=== PATIENT | male | born 1960 | race Caucasian/White ===

== ENCOUNTER 2023-08-22 08:44 | Outpatient (OUT) | payer OTHER, SELFPAY ==
--- NOTE | 2023-08-22 08:54 | CT_ITS ---
[address] [address] Patient Name: BREN ANGEL MRN: [id number] date: 1960 Sex: M Assigned Patient Location: CT Current Patient Location: CT Accession/Order Number: [id number] Exam Date: 08/22/2023 09:02 Report Date: 08/22/2023 14:10 At the request of: ANTIONE ADAME Procedure: CT lung screening low-dose EXAM TYPE: CT lung screening low-dose INDICATION: Lung cancer screening. Current smoker. COMPARISON: Radiograph of the chest 10/12/2022 TECHNIQUE: Noncontrast, Low dose, helical axial images of the chest were obtained, and thin section, axial MIP, and coronal and sagittal reformats were also submitted from the acquisition scanner under radiologist supervision. Each series was submitted in a lung algorithm. Dose reduction techniques were achieved by using automated exposure control and/or adjustment of mA and/or kV according to patient size and/or use of iterative reconstruction technique. FINDINGS: Please note that this examination was tailored for evaluation of pulmonary nodules, and therefore soft tissue detail is suboptimal. Heart size within normal limits. No pericardial effusion. Coronary artery calcification and calcified atherosclerotic change within a normal caliber aorta. No mediastinal, hilar or axillary lymphadenopathy. No central endobronchial nodule.Mild diffuse emphysematous change and bronchial wall thickening. No focal consolidation or pleural effusion. No pneumothorax. 2 mm right upper lobe nodule (3, 49) 3 mm right middle lobe nodule (3, 100) 3 mm groundglass juxtapleural nodule (3, 60) 2 mm left upper lobe nodule (3, 45) Additional 1 to 2 mm pulmonary nodules bilaterally. No acute findings in the upper abdomen. No acute fracture or dislocation. IMPRESSION : Lung RADS category 2: Benign. RECOMMENDATIONS: Continued annual LD screening CT scan of the chest. Electronically authenticated by: PIPER ABDALLA Date: 08/22/2023 14:10
== END 2023-08-22 08:45 | disposition home or self-care (01) ==
LOC: CT 08:44
DX: Z12.2 Encounter for screening for malignant neoplasm of respiratory organs (principal)
CPT/HCPCS: 71271

== ENCOUNTER 2024-09-30 09:35 | Outpatient (OUT) | payer OTHER, SELFPAY ==
--- OUTSIDE RECORDS SUMMARY | 2024-09-30 09:52 | XMS_ITS | CCD ---
Author Organization [facility] Care Team Providers Care Rd Project Manager Name Role Phone DILLAN MCARTHUR Primary Care Unavailable DILLAN MCARTHUR Referring Unavailable [place], EHAB A Admitting Unavailable [place], EHAB A Attending Unavailable [place], EHAB A Surgeon Unavailable [place] Procedure Practitioner Unavailab DR DILLAN Atreaga Primary Care Unavailable JESUS MORA Admitting Unavailable JESUS MORA Consulting Unavailable JESUS MORA Attending Unavailable SY BANKS Consulting Unavailable DR SARTHAK COLEY Primary Care Unavailable MILES GUZMÁN Admitting Unavailable MILES GUZMÁN Attending Unavailable [place], LYLEAB Attending Unavailable MARTINA MATTHEWS Attending Unavailable MARTINA MATTHEWS Attending Unavailable Problems Active Problems Problem Classification Problem Date Documented Date Episodic/Chronic Coronary atherosclerosis and other heart disease (3 sources) Atherosclerotic heart disease of [place] coronary artery without angina pectoris; Translations: [ASHD [facility] CA W/O ANGINA PECTORIS] Onset: 10-13-2022 Chronic Coronary atherosclerosis and other heart disease (1 source) Presence of coronary angioplasty implant and graft; Translations: [PRESENCE COR ANGPLSTY IMPLANT AND GRAFT] Onset: 10-13-2022 Episodic Disorders of lipid metabolism (2 sources) Mixed hyperlipidemia; Translations: [Mixed hyperlipidemia] Onset: 02-01-2023 Chronic Essential hypertension (2 sources) Essential (primary) hypertension; Translations: [Essential (primary) hypertension] Onset: 02-01-2023 Chronic Other aftercare (1 source) custodial (current) use of aspirin; Translations: [CLINICAL PSYCHOLOGY PROFESSOR CURRENT USE OF ASPIRIN] Onset: 10-13-2022 Episodic Other aftercare (1 source) Other detention (current) drug therapy; Translations: [OTH CLINICAL PSYCHOLOGY PROFESSOR CURRENT DRUG THERAPY] Onset: 10-13-2022 Episodic Substance-related disorders (2 sources) Nicotine dependence, unspecified, uncomplicated; Translations: [Nicotine dependence, unspecified, uncomplicated] Onset: 02-01-2023 Chronic Past or Other Problems Problem Classification Problem Date Documented Da te Episodic/Chronic Nonspecific chest pain (6 sources) Chest pain, unspecified; Translations: [CHEST PAIN UNSPECIFIED] Onset: 10-12-2022 Episodic Results Test Name Value Interpretation Reference Range Facility Office Visiton 10-09-2023 Follow-up visit [id number] Nicanor Scott 1960 M Date Provider Department Center 10/09/2023 Lj-NATALIA DA SILVA Family History Problem Relation Age of Onset Hypertension Mother Coronary artery disease Paternal Grandfather Family Status - Relation Status Age at Mother Paternal Grandfather Level of Service:70570 [place] OFFICE/OUTPATIENT ESTABLISHED LOW MDM 20 MIN Normal [facility] Office Visiton 02-01-2023 Follow-up visit [id number] Hall 1960 M Date Provider Department Center 02/01/2023 [id number] STONE Family History Problem Relation Age of Onset Hypertension Mother Coronary artery disease Paternal Grandfather Family Status - Relation Status Age at Mother Paternal Grandfather Level of Service:58913 AR OFFICE/OUTPATIENT ESTABLISHED MOD MDM 30-39 MIN Reason for Visit and Comments: Follow-up [103796] - 4-6 week follow up [facility] 36on 01-03-2023 36 Patient called to make us aware that isosorbide gave him a horrible headache and he stopped it after 3 days. I advised him to take Tylenol with it for another 3 days and let us know if the headache continues. He verbalized understanding and will let us know. Normal [facility] Office Visiton 12-27-2022 Follow-up visit [id number] Nicanor Scott 1960 M Date Provider Department Center 12/27/2022 MARTINA BUCKLEY Family History Problem Relation Age of Onset Hypertension Mother Coronary artery disease Paternal Grandfather Family Status - Relation Status Age at Mother Paternal Grandfather Level of Service:81700 AR OFFICE/OUTPATIENT ESTABLISHED MOD MDM 30-39 MIN Reason for Visit and Comments: Coronary Artery Disease [187] Chest Pain [071060] Normal [facility] CBC AUTO DIFFon 10-12-2022 BASO # 0.1 103/ul Normal 0.0-0.1 [facility] Comment on above: Performed By: #### C BC #### [facility] [address] [place] [address] Dr. Jj Rodriguez Basophils/100 WBC (Bld) 0.6 % Normal 0.2-2.0 [facility] Comment on above: Performed By: #### C BC #### [facility] [address] [place] [address] Dr. Jj Rodriguez EO # 0.3 103/ul Normal 0.0-0.7 [facility] Comment on above: Performed By: #### C BC #### [facility] [address] [place] [address] Dr. Jj Rodriguez Eosinophils/100 WBC (Bld) 3.1 % Normal 0.9-7.0 [facility] Comment on above: Performed By: #### C BC #### [facility] [address] [place] [address] Dr. Jj Rodriguez Erythrocyte distribution width (RBC) [Ratio] 12.2 % Normal 11.0-15.0 [facility] Comment on above: Performed By: #### C BC #### [facility] [address] [place] [address] Dr. Jj Rodriguez Hematocrit (Bld) [Volume fraction] 48.5 % Normal 42.0-54.0 [facility] Comment on above: Performed By: #### C BC #### [facility] [address] [place] [address] Dr. Jj Rodriguez Hemoglobin (Bld) [Mass/Vol] 15.8 g/dL Normal 14.0-18.0 [facility] Comment on above: Performed By: #### C BC #### [facility] [address] [place] [address] Dr. Jj Rodriguez IG # 0.03 10e3/ul Normal 0.00-0.03 [facility] Comment on above: Performed By: #### C BC #### [facility] [address] [place] [address] Dr. Jj Rodriguez IG % 0.4 % Normal 0.0-0.5 [facility] Comment on above: Performed By: #### C BC #### [facility] [address] [place] [address] Dr. Jj Rodriguez LYMPH # 3.1 103/ul Normal 1.2-3.8 [facility] Comment on above: Performed By: #### C BC #### [facility] [address] [place] [address] Dr. Jj Rodriguez Lymphocytes/100 WBC (Bld) 38.4 % Normal 20.5-60.0 [facility] Comment on above: Performed By: #### C BC #### [facility] [address] [place] [address] Dr. jJ Rodriguez MANUAL DIFF REQ NO Normal [facility] Comment on above: Performed By: #### C BC #### [facility] [address] [place] [address] Dr. Jj Rodriguez MCH (RBC) [Entitic mass] 30.5 pg Normal 25.9-34.0 [facility] Comment on above: Performed By: #### C BC #### [facility] [address] [place] [address] Dr. Jj Rodriguez MCHC (RBC) [Mass/Vol] 32.6 g/dL Normal 29.9-35.2 [facility] Comment on above: Performed By: #### C BC #### [facility] [address] [place] [address] Dr. Jj Rodriguez MCV (RBC) [Entitic vol] 93.6 fL Normal 80.0-94.0 [facility] Comment on above: Performed By: #### C BC #### [facility] [address] [place] [address] Dr. Jj Rodriguez MONO # 0.7 103/ul Normal 0.3-0.8 [facility] Comment on above: Performed By: #### C BC #### [facility] [address] [place] [address] Dr. Jj Rodriguez Monocytes/100 WBC (Bld) 8.8 % Normal 1.7-12.0 [facility] Comment on above: Performed By: #### C BC #### [facility] [address] [place] [address] Dr. jJ Rodriguez NEUT # 4.0 103/ul Normal 1.4-6.5 [facility] Comment on above: Performed By: #### C BC #### [facility] [address] [place] [address] Dr. Jj Rodriguez Neutrophils/100 WBC (Bld) 48.7 % Normal 43.0-75.0 [facility] Comment on above: Performed By: #### C BC #### [facility] [address] [place] [address] Dr. Jj Rodriguez Platelet mean volume (Bld) [Entitic vol] 10.7 fL Normal 9.5-13.5 [facility] Comment on above: Performed By: #### C BC #### [facility] [address] [place] [address] Dr. Jj Rodriguez PLT 303 103/ul Normal 150-450 [facility] Comment on above: Performed By: #### C BC #### [facility] [address] [place] [address] Dr. Jj Rodriguez RBC 5.18 106/ul Normal 4.70-6.10 [facility] Comment on above: Performed By: #### C BC #### [facility] [address] [place] [address] Dr. Jj Rodriguez WBC 8.2 103/ul Normal 4.0-11.0 [facility] Comment on above: Performed By: #### C BC #### [facility] [address] [place] [address] Dr. Jj Rodriguez PROF CHEM 8 (BAS METB)on Anion gap [Moles/Vol] 11.7 mmol/L Normal [facility] Comment on above: Performed By: #### H STROPN, BMP #### [facility] [address] [place] [address] Dr. Jj Rodriguez Calcium [Mass/Vol] 8.8 mg/dL Normal 8.5-10.1 [facility] Comment on above: Performed By: #### H STROPN, BMP #### [facility] [address] [address] [address] Jj Rodriguez Chloride [Moles/Vol] 104 mmol/L Normal 98-107 [facility] Comment on above: Performed By: #### H STROPN, BMP #### [facility] [address] [address] [address] Jj Rodriguez CO2 [Moles/Vol] 31.4 mmol/L Normal 21.0-32.0 [facility] Comment on above: Performed By: #### H STROPN, BMP #### [facility] [address] [place] [address] Dr. Jj Rodriguez Creatinine [Mass/Vol] 0.82 mg/dL Normal 0.70-1.30 [facility] Comment on above: Performed By: #### H STROPN, BMP #### [facility] [address] [place] [address] Dr. Jj Rodriguez EGFR-AF MALIAN >60 Normal >=60 [facility] Comment on above: Performed By: #### H STROPN, BMP #### [facility] [address] [place] [address] Dr. Jj Rodriguez EGFR-NON AF MALIAN >60 Normal >=60 [facility] Comment on above: Performed By: #### H STROPN, BMP #### [facility] [address] [address] [address] Jj Rodriguez Glucose [Mass/Vol] 123 mg/dL Critically high 74-106 [facility] Comment on above: Performed By: #### H STROPN, BMP #### [facility] [address] [place] [address] Dr. Jj Rodriguez Potassium [Moles/Vol] 4.1 mmol/L Normal 3.5-5.1 [facility] Comment on above: Performed By: #### H STROPN, BMP #### [facility] [address] [place] [address] Dr. Jj Rodriguez Sodium [Moles/Vol] 143 mmol/L Normal 136-145 [facility] Comment on above: Performed By: #### H WIN, BMP #### [facility] [address] [place] [address] Dr. Jj Rodriguez Urea nitrogen [Mass/Vol] 13.0 mg/dL Normal 7.0-18.0 [facility] Comment on above: Performed By: #### H WIN, BMP #### [facility] [address] [place] [address] Dr. Jj Rodriguez Urea nitrogen/Creatinine [Mass ratio] 15.9 mg/mg Normal [facility] Comment on above: Performed By: #### H WIN, BMP #### [facility] [address] [place] [address] Dr. Jj Rodriguez TROPONIN, HIGH SENSITIVITYon 10-12-2022 HSTROP 5.9 pg/mL Normal 4.0-76.1 [facility] Comment on above: Result Comment: CUT- OFF POINTS HAVE BEEN ESTABLISHED BASED ON THE FOURTH UNIVERSAL DEFINITIONS OF MYOCARDIAL INFARCTION. THE UPPER REFERENCE LIMIT (URL) OF TROPONIN, DEFINED THE 99TH PERCENTILE OF cTnI DISTRIBUTION IN A REFERENCE POPULATION, HAS BEEN CONFIRMED THE DECISION THRESHOLD FOR PA DIAGNOSIS. Performed By: #### Fannie WALDEN #### [facility] [address] [place] [address] Dr. Jj Rodriguez HSTROP 6.2 pg/mL Normal 4.0-76.1 [facility] Comment on above: Result Comment: CUT- OFF POINTS HAVE BEEN ESTABLISHED BASED ON THE FOURTH UNIVERSAL DEFINITIONS OF MYOCARDIAL INFARCTION. THE UPPER REFERENCE LIMIT (URL) OF TROPONIN, DEFINED THE 99TH PERCENTILE OF cTnI DISTRIBUTION IN A REFERENCE POPULATION, HAS BEEN CONFIRMED THE DECISION THRESHOLD FOR PA DIAGNOSIS. Performed By: #### H WIN, BMP #### [facility] [address] [place] [address] Dr. Jj Rodriguez XR CHEST 1 Von 10-12-2022 XR CHEST 1 V EXAM: CHEST PAIN, UNSPECIFIED. EXAMINATION: Portable chest: 10/12/2022 at 0959 hours. COMPARISON: AP chest 11/17/2020. FINDINGS: Patient is slightly rotated, lordotic. The visualized osseous structures are normal. The heart size seems normal. The aorta has normal contour. Trachea is midline. There are no focal infiltrates, pleural effusions, pleural edema or pneumothorax. IMPRESSION: No acute cardiopulmonary disease. Electronically authenticated by: SY BANKS Date: 2022-10-12 10:37 Normal [facility] CREATININE BLOODon Creatinine [Mass/Vol] 0.90 mg/dL Normal 0.70-1.30 [facility] Comment on above: Order Comment: No: D o not add to previous draw Performed By: #### 2 5656 #### [facility] [address] [address], [facility] GFR/1.73 sq M.predicted among blacks MDRD (S/P/Bld) [Vol rate/Area] mL/min/{1.73_m2} Normal >60 [facility] Comment on above: Order Comment: No: D o not add to previous draw Performed By: #### 2 5656 #### [facility] [address] [address], [facility] GFR/1.73 sq M.predicted among non-blacks MDRD (S/P/Bld) [Vol rate/Area] mL/min/{1.73_m2} Normal >60 [facility] Comment on above: Order Comment: No: D o not add to previous draw Performed By: #### 2 5656 #### [facility] [address] [facility] [place] [address], [facility] Cardiovascular Lab Reporton 12-02-2020 Cardiovascular Lab Report [facility] Patient Name: Nicanor Scott [facility] Lisa MR #: [id number] Department of Physician: Navin Desai M.D. Division of Service Date: 12/01/2020 Cardiology Birthdate: 1960 Adult Cardiovascular Room #: 3AB [id number] Services [facility] [address] [address] Cardiovascular Laboratory Report FINAL IMPRESSIONS: 1. Severe stenoses of the right coronary artery, successfully treated by balloon angioplasty and Synergy drug-eluting stent placement. 2. 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 3. 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 4. Normal global left ventricular systolic function. RECOMMENDATIONS: 1. Aspirin 81 mg lifelong. 2. Plavix 75 mg daily for a minimum of 6 months preferably long-term. 3. Aggressive cardiovascular risk factor modification. 4. Optimization of medical management. 5. Follow up with Dr. Da Silva in the next 2 to 4 weeks. 6. Follow up with his family physician as scheduled. PROCEDURES: Bilateral selective coronary angiography via right radial approach, ultrasound-guided access to the right common femoral artery, dual coronary injections, percutaneous balloon angioplasty and Synergy drug-eluting stent placement in the right coronary artery, balloon angioplasty and Synergy drug-eluting stent placement in the left circumflex and adjacent to the 3rd obtuse marginal branch. METHOD: After risks, benefits, and alternatives were explained, written informed consent was obtained. The patient was prepped and draped in the usual sterile fashion over the right wrist and right groin. Using 1% lidocaine solution, local infiltration anesthesia was achieved. Using a modified Seldinger technique and a micropuncture kit, access of the right radial artery was obtained. A 6-Cypriot glide sheath was inserted without difficulty. Bilateral selective coronary angiography was performed using JR5 and a JL3.5 catheters. After reviewing the images, it was elected to proceed with Dual coronary injections. Local infiltration anesthesia was achieved over the right groin. Under ultrasound guidance, a micropuncture kit was used to access the right common femoral artery using a single front wall puncture technique. Angiography via the inner cannula of the micropuncture kit was performed. This was upsized to a 6-Cypriot 11 cm sheath. A 6-Cypriot XB3.5 guide catheter was advanced over a J-wire and coaxially engaged into the left main ostium. A 6-Cypriot JR4 guide catheter was advanced through the radial access site and coaxially engaged into the right coronary ostium. A 0.014 Runthrough NS wire was advanced through the catheter across the suspect stenosis in the right coronary artery and positioned distally. Balloon angioplasty was performed sequentially across both the mid and proximal lesion using a 2.5 x 15 balloon and a 3.0 x 15 mm noncompliant balloon in the mid and proximal portions. Inadequate result was treated using a 3.5 x 16 synergy drug-eluting stents in both the distal and proximal of the two lesions. Repeat imaging showed an optimal result. The wire was removed. Dual coronary injections were then performed using the JR4 guide and the XB3.5 guide catheter. This revealed a short segment chronic subtotal occlusion of the left circumflex. This was crossed using the run-through NS wire. Balloon dilation was performed using a 2.0 x 20 mm noncompliant balloon. An inadequate result was treated using overlapping 2.75 x 32, 2.5 x 8, and 2.5 x 16 from proximal to distal with attention paid to ensure overlap of stent margins. Repeat imaging showed an optimal result. The wire was removed. Final images in orthogonal views showed HANNA-3 flow with no dissection, thrombus, or distal wire trauma. At this point, it was elected to conclude the procedure. Overall, the patient tolerated the procedure well. There were no overt complications. After removal of the guide catheters, a 6-Cypriot MynxGrip closure device was deployed over the femoral access site receiving optimal hemostasis. The TR band was used for hemostasis over the radial access site. He was to be transferred to the holding area in stable condition. FINDINGS: Hemodynamics. AO 111/61. Left Ventriculography: This was not performed. Ejection fraction is normal by noninvasive imaging. CORONARY ARTERIES: Left main coronary artery. This arises from the left coronary cusp. It bifurcates into the left anterior descending and left circumflex coronary arteries. It is free of significant stenosis. Left anterior descending coronary artery. This shows mild plaque proximally. There is a short segment myocardial bridge w (more content not included)... Normal [facility] HEMOGLOBIN A1Con 12-02-2020 Glucose [Moles/Vol] 108 mmol/L Normal [facility] Comment on above: Order Comment: No: D o not add to previous draw Performed By: #### 3 2695 #### [facility] [address] [place] [address], [facility] HbA1c (Bld) [Mass fraction] 5.4 % Normal 4.0-6.0 [facility] Comment on above: Order Comment: No: D o not add to previous draw Performed By: #### 3 1791 #### [facility] [address] [place] [address], [facility] LIPID PROFILEon 12-02-2020 Cholesterol [Mass/Vol] 160 mg/dL Normal 120-200 [facility] Comment on above: Order Comment: No: D o not add to previous draw Result Comment: CHOL ESTEROL REFERENCE RANGE: 20 YEARS AND OLDER CARDIOVASCULAR RISK Less than 200 mg/dl Low Risk 200 to 239 mg/dl Borderline Risk 240 mg/dl and greater High Risk Performed By: #### 4 [id number] #### [facility] [address] [place] [address], [facility] Cholesterol in HDL [Mass/Vol] 21 mg/dL Low 23-92 [facility] Comment on above: Order Comment: No: D o not add to previous draw Result Comment: Slig ht variation in normal range could be due to gender and/or age. HDL CHOLESTEROL REFERENCE RANGE: 20 years and older Cardiovascular Risk > or =60 mg/dL Desirable 40 TO 59 mg/dL Low Risk <40 mg/dL High Risk Performed By: #### 4 [id number] #### [facility] [address] [place] [address], [facility] Cholesterol in LDL [Mass/Vol] 112 mg/dL Normal 0-130 [facility] Comment on above: Order Comment: No: D o not add to previous draw Result Comment: LDL IS A CALCULATION LDL IS ONLY VALID IF THE TRIG IS LESS THAN 400. Performed By: #### 4 [id number] #### [facility] [address] [place] [address], [facility] Cholesterol.total/Ch olesterol in HDL [Mass ratio] 7.6 {ratio} High 0.0-4.5 [facility] Comment on above: Order Comment: No: D o not add to previous draw Performed By: #### 4 [id number] #### [facility] [address] [place] [address], [place] NON-HDL CHOLESTEROL 139 mg/dL Normal [facility] Comment on above: Order Comment: No: D o not add to previous draw Performed By: #### 4 [id number] #### [facility] [address] Triglyceride [Mass/Vol] 137 mg/dL Normal 40-149 [facility] Comment on above: Order Comment: No: D o not add to previous draw Result Comment: TRIG LYCERIDE REFERENCE RANGE: 20 YEARS AND OLDER CARDIOVASCULAR RISK LESS THAN 150 mg/dl LOW RISK 150 TO 199 mg/dl BORDERLINE RISK 200 mg/dl AND GREATER HIGH RISK Performed By: #### 4 [id number] #### [facility] [address] VLDL CHOL 27 mg/dL Normal 0-40 [facility] Comment on above: Order Comment: No: D o not add to previous draw Performed By: #### 4 [id number] #### [facility] [address] Encounters Encounter Date Encounter Type Care Provider Facility Start: 10-09-2023 End: 10-09-2023 ambulatory AB [facility] Start: 02-01-2023 End: [facility] Start: 12-27-2022 End: 12-27-2022 ambulatory [facility] Start: 10-12-2022 End: 10-12-[address] DILLAN MCARTHUR Facility:[facility] Start: 05-12-[address] DOCTOR COLEY Facility :[facility] Start: 12-01-2020 End: 12-02-2020 ambulatory DILLAN MCARTHUR Facility:[facility] Procedures Date Procedure Procedure Detail Performing Clinician Start: 12-02-2020 ANES THER INTERVEN RAD LOGAN MCARTHUR Start: 12-02-2020 PRQ CARD REVASC CHRONIC 1VSL EHAB A [place] Start: 12-02-2020 PRQ CARD STENT W/ANGIO 1 [facility] [place] Payers Date Payer Category Payer Unknown [id number] 2020 Unknown [id number] 50 1960 Unknown [id number] 1960 Unknown [id number] 1960 Unknown [id number] 1959 Unknown [id number] Progress note 10-09-2023 Note Date & Type Note Facility 10-09-2023 Note [facility] Cardiology Clinic Note Chief Complaint: Patient here for 6 mo follow up CAD, hyperlipidemia, and hypertension. HPI: Nicanor Scott is a 63 y.o. male patient with coronary artery disease status post circumflex stents x3 and RCA stent 12/01/2020, hyperlipidemia, and tobacco use. Doing well; no new symptoms Cardiology ROS: Review of Systems Cardiovascular: Positive for palpitations ( stress related ). Musculoskeletal: Positive for back pain. Neurological: Positive for headaches. All other systems reviewed and are negative. Past Medical History He has a past medical history of Coronary artery disease, Hyperlipidemia, Hypertension, and Palpitations. Surgical History He has a past surgical history that includes Cardiac catheterization; Coronary stent placement; Appendectomy; and Hernia repair. Social History He reports that he has been smoking cigarettes. He has been smoking an average of .5 packs per day. He has never used smokeless tobacco. He reports that he does not currently use alcohol. No history on file for drug use. Family History Family History Problem Relation Name Age of Onset Hypertension Mother Coronary artery disease Paternal Grandfather Allergies Patient has no known allergies. Medications Current Outpatient Medications: aspirin 81 mg EC tablet, aspirin 81 mg tablet,delayed release TAKE 1 TABLET BY MOUTH EVERY DAY, Disp: , Rfl: atorvastatin (Lipitor) 80 mg tablet, atorvastatin 80 mg tablet TAKE 1 TABLET BY MOUTH EVERY DAY, Disp: , Rfl: cholecalciferol, vitamin D3, 10 mcg (400 unit) capsule, Take by mouth., Disp: , Rfl: clopidogrel (Plavix) 75 mg tablet, clopidogrel 75 mg tablet TAKE 1 TABLET BY MOUTH EVERY DAY, Disp: , Rfl: isosorbide mononitrate ER (Imdur) 30 mg 24 hr tablet, Take 1 tablet (30 mg) by mouth in the morning. Do not crush or chew., Disp: 30 tablet, Rfl: 1 metoprolol tartrate (Lopressor) 50 mg tablet, every 12 (twelve) hours., Disp: , Rfl: nitroglycerin (Nitrostat) 0.4 mg SL tablet, nitroglycerin 0.4 mg sublingual tablet DISSOLVE 1 TAB UNDER TONGUE EVERY 5 MINUTES UP TO 3 TIMES NEEDED FOR CHEST PAIN, Disp: , Rfl: Last Recorded Vitals BP 134/72 (BP Location: Left arm, Patient Position: Sitting) Pulse 71 Ht 1.778 m (5' 10 ) Wt 92.1 kg (203 lb) SpO2 96% BMI 29.13 kg/m??? Physical Examination: GENERAL: alert and oriented x3, well developed, in no acute distress. HEAD: atraumatic, normocephalic. EYES: [place], EOMI. NECK: trachea midline, no JVD present, no carotid bruits present. CARDIAC: S1, S2 present. RRR. No murmur, rubs, or gallops. RESPIRATORY: CTAB, no increased effort of breathing, no rales, rhonchi, or wheezing. ABDOMEN: soft, nontender, nondistended. EXTREMITIES: no lower extremity edema, peripheral pulses are 2+ bilaterally. No rash/skin discoloration present. NEURO: strength/sensation equal and symmetric in bilateral upper and lower extremities. PSYCH: appropriate mood, affect, and judgement. Recent Labs 10/12/2022 Sodium 143, potassium 4.1, chloride 104, CO2 31.4, glucose 123, BUN 13, creatinine 0.82, GFR greater than 60% WBC 8.2, hematocrit 48.5, hemoglobin 15.8, platelets 303 Imaging and other tests Cardiovascular Laboratory Report (12/01/20) FINAL IMPRESSIONS: 1. Severe stenoses of the right coronary artery, successfully treated by balloon angioplasty and Synergy drug-eluting stent placement. 2. 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 3. 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 4. Normal global left ventricular systolic function. RECOMMENDATIONS: 1. Aspirin 81 mg lifelong. 2. Plavix 75 mg daily for a minimum of 6 months preferably long-term. 3. Aggressive cardiovascular risk factor modification. 4. Optimization of medical management. 5. Follow up with Dr. Da Silva in the next 2 to 4 weeks. 6. Follow up with his family physician as scheduled. 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 [facility] Progress note 02-01-2023 Note Date & Type Note Facility 02-01-2023 Note Patient is here toda y for a 4-6 week follow up Review of Systems Musculoskeletal: Positive for back pain. Neurological: Positive for headaches. All other systems reviewed and are negative. [facility] Progress note 02-01-2023 Note Date & Type Note Facility 02-01-2023 Note Cardiology Clinic No te Subjective Nicanor Scott is a 62 y.o. year old male patient with coronary artery disease status post circumflex stents x3 and RCA stent 12/01/2020, lipidemia, and tobacco use, seen in follow-up for chest pain. During last visit, we started him on Imdur 30 mg daily. He developed headaches with these, however he reports these are improving. His chest pain has resolved. Overall doing well. He is still smoking and is not interested in quitting at this time. Patient Active Problem List Diagnosis Coronary atherosclerosis Generalized anxiety disorder Major depressive disorder, recurrent episode, moderate (CMS/HCC) Smoker Family History Problem Relation Name Age of Onset Hypertension Mother Coronary artery disease Paternal Grandfather Social History Tobacco Use Smoking status: Every Day Packs/day: 0.50 Types: Cigarettes Smokeless tobacco: Never Substance Use Topics Alcohol use: Not Currently HPI Nicanor Scott is a 62 y.o. year old male patient with coronary artery disease status post circumflex stents x3 and RCA stent 12/01/2020, hyperlipidemia, and tobacco use. Update: 12/27/2022 He is seen in posthospital follow-up. He presented to the [facility] on 10/12/2022 for evaluation of chest pain ongoing for several weeks. His work-up including ECG and high sensitive troponins were negative. He was treated with sublingual nitroglycerin with resolution of chest pain. He has constant midsternal chest pressure which he rates 2/10, pain is constant lasting for about 2-3 hours at a time and recurring about every other day. Pain is dissimilar to pain leading to ED presentation. He experiences very brief palpitations about twice/week lasting about 5 seconds. He continues to smoke, he is down to a little about a pack a day from 2 packs/day. Review of Systems Cardiovascular: Positive for chest pain and palpitations. Negative for claudication, dyspnea on exertion, irregular heartbeat, leg swelling, near-syncope, orthopnea, paroxysmal nocturnal dyspnea and syncope. Neurological: Negative for dizziness and light-headedness. Objective Visit Vitals BP 139/76 (BP Location: Left arm, Patient Position: Sitting, BP Cuff Size: Adult) Pulse 75 Ht 1.778 m (5' 10 ) Wt 94.5 kg (208 lb 6.4 oz) SpO2 97% BMI 29.90 kg/m??? Smoking Status Every Day BSA 2.16 m??? Physical Exam General: Awake, alert, good spirits. NADit Pulm: Breath sounds clear to ascultation bilaterally with no wheeze, crackles or rhonchi Cards: Regular rate and rhythm, S1, S2. No S3 or S4 gallop. Murmur: none Abd: Soft, Nontender, physiologic bowel sounds are present Extr: Lower extremity edema: None. Skin: warm, dry, well perfused Neuro: A&Ox3, No gross deficits Allergies No Known Allergies Medications Current Outpatient Medications: aspirin 81 mg EC tablet, aspirin 81 mg tablet,delayed release TAKE 1 TABLET BY MOUTH EVERY DAY, Disp: , Rfl: atorvastatin (Lipitor) 80 mg tablet, atorvastatin 80 mg tablet TAKE 1 TABLET BY MOUTH EVERY DAY, Disp: , Rfl: cholecalciferol, vitamin D3, 10 mcg (400 unit) capsule, Take by mouth., Disp: , Rfl: clopidogrel (Plavix) 75 mg tablet, clopidogrel 75 mg tablet TAKE 1 TABLET BY MOUTH EVERY DAY, Disp: , Rfl: metoprolol tartrate (Lopressor) 50 mg tablet, every 12 (twelve) hours., Disp: , Rfl: nitroglycerin (Nitrostat) 0.4 mg SL tablet, nitroglycerin 0.4 mg sublingual tablet DISSOLVE 1 TAB UNDER TONGUE EVERY 5 MINUTES UP TO 3 TIMES NEEDED FOR CHEST PAIN, Disp: , Rfl: isosorbide mononitrate ER (Imdur) 30 mg 24 hr tablet, Take 1 tablet (30 mg) by mouth in the morning. Do not crush or chew., Disp: 30 tablet, Rfl: 1 Recent Labs 10/12/2022 Sodium 143, potassium 4.1, chloride 104, CO2 31.4, glucose 123, BUN 13, creatinine 0.82, GFR greater than 60% WBC 8.2, hematocrit 48.5, hemoglobin 15.8, platelets 303 Imaging and other tests Cardiovascular Laboratory Report (12/01/20) FINAL IMPRESSIONS: 1. Severe stenoses of the right coronary artery, successfully treated by balloon angioplasty and Synergy drug-eluting stent placement. 2. 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 3. 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 4. Normal global left ventricular systolic function. RECOMMENDATIONS: 1. Aspirin 81 mg lifelong. 2. Plavix 75 mg daily for a minimum of 6 months preferably long-term. 3. Aggressive cardiovascular risk factor modification. 4. Optimization of medical management. 5. Follow up with Dr. Da Silva in the next 2 to 4 weeks. 6. Follow up with his family physician as scheduled. ECHO 11/25/20: EF >55%, no DD, no valvular dysfunction, normal right sided pressures Assessment Diagnoses and all orders for this visit: Coronary art (more content not included)... [facility] Progress note 12-27-2022 Note Date & Type Note Facility 12-27-2022 Note Cardiology Clinic No te Subjective Nicanor Scott is a 62 y.o. year old male patient with coronary artery disease status post circumflex stents x3 and RCA stent 12/01/2020, lipidemia, and tobacco use, seen in posthospital follow-up. He presented to the [facility] on 10/12/2022 for evaluation of chest pain ongoing for several weeks. His work-up including ECG and high sensitive troponins were negative. He was treated with sublingual nitroglycerin with resolution of chest pain. He has constant midsternal chest pressure which he rates 2/10, pain is constant lasting for about 2-3 hours at a time and recurring about every other day. Pain is dissimilar to pain leading to ED presentation. He experiences very brief palpitations about twice/week lasting about 5 seconds. He continues to smoke, he is down to a little about a pack a day from 2 packs/day. Patient Active Problem List Diagnosis Coronary atherosclerosis Generalized anxiety disorder Major depressive disorder, recurrent episode, moderate (CMS/HCC) Smoker Family History Problem Relation Name Age of Onset Hypertension Mother Coronary artery disease Paternal Grandfather Social History Tobacco Use Smoking status: Every Day Packs/day: 0.50 Types: Cigarettes Smokeless tobacco: Never Substance Use Topics Alcohol use: Not Currently Review of Systems Cardiovascular: Positive for chest pain and palpitations. Negative for claudication, dyspnea on exertion, irregular heartbeat, leg swelling, near-syncope, orthopnea, paroxysmal nocturnal dyspnea and syncope. Neurological: Negative for dizziness and light-headedness. Objective Visit Vitals BP 115/62 (BP Location: Left arm, Patient Position: Sitting) Pulse 61 Ht 1.778 m (5' 10 ) Wt 94.8 kg (209 lb) SpO2 96% BMI 29.99 kg/m??? Smoking Status Every Day BSA 2.16 m??? Physical Exam General: Awake, alert, good spirits. NADit Pulm: Breath sounds clear to ascultation bilaterally with no wheeze, crackles or rhonchi Cards: Regular rate and rhythm, S1, S2. No S3 or S4 gallop. Murmur: none Abd: Soft, Nontender, physiologic bowel sounds are present Extr: Lower extremity edema: None. Skin: warm, dry, well perfused Neuro: A&Ox3, No gross deficits Allergies No Known Allergies Medications Current Outpatient Medications: aspirin 81 mg EC tablet, aspirin 81 mg tablet,delayed release TAKE 1 TABLET BY MOUTH EVERY DAY, Disp: , Rfl: atorvastatin (Lipitor) 80 mg tablet, atorvastatin 80 mg tablet TAKE 1 TABLET BY MOUTH EVERY DAY, Disp: , Rfl: cholecalciferol, vitamin D3, (Vitamin D3) 10 mcg (400 unit) capsule, Take by mouth., Disp: , Rfl: clopidogrel (Plavix) 75 mg tablet, clopidogrel 75 mg tablet TAKE 1 TABLET BY MOUTH EVERY DAY, Disp: , Rfl: metoprolol tartrate (Lopressor) 50 mg tablet, every 12 (twelve) hours., Disp: , Rfl: nitroglycerin (Nitrostat) 0.4 mg SL tablet, nitroglycerin 0.4 mg sublingual tablet DISSOLVE 1 TAB UNDER TONGUE EVERY 5 MINUTES UP TO 3 TIMES NEEDED FOR CHEST PAIN, Disp: , Rfl: isosorbide mononitrate ER (Imdur) 30 mg 24 hr tablet, Take 1 tablet (30 mg) by mouth in the morning. Do not crush or chew., Disp: 30 tablet, Rfl: 1 Recent Labs 10/12/2022 Sodium 143, potassium 4.1, chloride 104, CO2 31.4, glucose 123, BUN 13, creatinine 0.82, GFR greater than 60% WBC 8.2, hematocrit 48.5, hemoglobin 15.8, platelets 303 Imaging and other tests Cardiovascular Laboratory Report (12/01/20) FINAL IMPRESSIONS: 1. Severe stenoses of the right coronary artery, successfully treated by balloon angioplasty and Synergy drug-eluting stent placement. 2. 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 3. 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 4. Normal global left ventricular systolic function. RECOMMENDATIONS: 1. Aspirin 81 mg lifelong. 2. Plavix 75 mg daily for a minimum of 6 months preferably long-term. 3. Aggressive cardiovascular risk factor modification. 4. Optimization of medical management. 5. Follow up with Dr. Da Silva in the next 2 to 4 weeks. 6. Follow up with his family physician as scheduled. ECHO 11/25/20: EF >55%, no DD, no valvular dysfunction, normal right sided pressures Assessment Diagnoses and all orders for this visit: Coronary artery disease involving [place] coronary artery of [place] heart, unspecified whether angina present - isosorbide mononitrate ER (Imdur) 30 mg 24 hr tablet; Take 1 tablet (30 mg) by mouth in the morning. Do not crush or chew. Chest pain, unspecified type - ECG 12 lead Mixed hyperlipidemia Tobacco dependence Plan Coronary artery disease -Symptoms are atypical occurring mainly at rest, however did seem to improve with nitroglycerin provided in the emergency department. He is agreeable to start (more content not included)... [facility] Summary Purpose Family History No Family History Records FoundNo Family History Records FoundNo Family History Records Found Advance Directives No Advanced Directives Records FoundNo Advanced Directives Records FoundNo Advanced Directives Records Found Additional Source Comments (unrecognized sect ion and content) No Status Records FoundNo Status Records FoundNo Status Records Found INFORMATION SOURCE (unrecogn ized section and content) DATE CREATED AUTHOR 01/20/[address] [facility] DATE CREATED AUTHOR AUTHOR'S ORGANIZ ATION 10/17/2022 [facility] DATE CREATED AUTHOR AUTHOR'S ORGANIZ ATION 10/09/2023 [facility] FOR RECORDS PERTAINING TO PATIENTS WHO ARE OR HAVE BEEN ENROLLED IN A CHEMICAL DEPENDENCY/SUBSTANCEABUSE PROGRAM, SOME INFORMATION MAY BE OMITTED. This clinical summary was aggregated from multiple sources. Caution should be exercised in using it in the provision of clinical care. This summary normalizes information from multiple sources, and as a consequence, information in this document may materially change the coding, format and clinical context of patient data. In addition, data may be omitted in some cases. CLINICAL DECISIONS SHOULD BE BASED ON THE PRIMARY CLINICAL RECORDS. [employer] provides no warranty or guarantee of the accuracy or completeness of information in this document.
[2024-09-30 11:06] LABS: Alanine Aminotransferase 50 U/L (16-63); Albumin Globulin Ratio 1.3; Albumin Level 3.7 g/dL (3.4-5.0); Alkaline Phosphatase 87 U/L (46-116); Aspartate Amino Transferase 21 U/L (15-37); Bilirubin Direct 0.1 mg/dL (0.0-0.2); Bilirubin Total 0.5 mg/dL (0.2-1.0); Chol HDL Ratio 6.5; Cholesterol 216 mg/dL (<=200); Globulin 2.9 g/dL; HDL Cholesterol 33 mg/dL (40-60); Total Protein 6.6 g/dL (6.4-8.2); Triglycerides 198 mg/dL (<=150); VLDL CHOLESTEROL 39.6 mg/dL
== END 2024-09-30 09:36 | disposition home or self-care (01) ==
LOC: LAB 09:37
PROVIDERS: Visit Provider Internal Medicine Interventional Cardiology
DX: E78.5 Hyperlipidemia, unspecified (principal)
CPT/HCPCS: 36415; 80061; 80076

== ENCOUNTER 2024-10-18 08:17 | Outpatient (OUT) | payer OTHER, SELFPAY ==
--- NOTE | 2024-10-18 08:22 | CT_ITS ---
[address] [address] Patient Name: BREN ANGEL MRN: [id number] date: 1960 Sex: M Assigned Patient Location: CT Current Patient Location: CT Accession/Order Number: [id number] Exam Date: 10/18/2024 08:27 Report Date: 10/18/2024 09:23 At the request of: NON-STAFF PHYSICIAN Procedure: CT lung screening low-dose EXAM: CT lung screening low-dose HISTORY: Nicotine Dependence COMPARISON: CT lung screen low-dose dated 08/22/2023. TECHNIQUE: Routine CT low dose lung screen. Dose reduction techniques were achieved by using automated exposure control and/or adjustment of mA and/or kV according to patient size and/or use of iterative reconstruction technique. FINDINGS: Cardiovascular: Multivessel coronary calcifications. There may be coronary artery stents. Correlation should be made with the clinical history. The left vertebral artery originates off the aortic arch, a variant of normal. There is mild atheromatous calcification along the aortic arch and proximal abdominal aorta. Lung: There is centrilobular emphysema. There is mild peribronchial thickening consistent with acute and/or chronic bronchitis. There is mild biapical pleural parenchymal scarring. Nodules: Right: Stable 2.3 mm noncalcified right apical nodule (series 4 image 29). Stable 1.9 mm and 2.1 mm noncalcified right upper lobe nodules (series 4 image 53). Stable 2.5 mm noncalcified right lower lobe nodule (series 4 image 82). Left: Stable 2.1 mm noncalcified left upper lobe nodule (series 4 image 51). Stable 1.8 mm noncalcified left upper lobe nodule (series 4 image 58). Stable 2.6 mm noncalcified left upper lobe nodule (series 4 image 100). Lymphadenopathy: There are no pathologically enlarged lymph nodes. Other: The trachea, esophagus and thyroid gland are unremarkable. Upper abdomen: Unremarkable. Osseous: There is a bone island within each humeral head. There are small Schmorl's nodes at T9-10. CT/CT lung screening low-dose IMPRESSION: There is centrilobular emphysema and mild peribronchial thickening consistent with acute and/or chronic bronchitis. Stable noncalcified nodules ranging from 1.8 mm to 2.6 mm. There are no pathologically enlarged lymph nodes. Atherosclerotic disease as described. Lung rads score 2. A low-dose CT lung screen examination in 12 months is recommended. Electronically authenticated by: ARELI SAMUEL Date: 10/18/2024 09:23
--- OUTSIDE RECORDS SUMMARY | 2024-10-18 08:24 | XMS_ITS | CCD ---
Author Organization [facility] Care Team Providers Care Kiln Firer Name Role Phone DILLAN MCARTHUR Primary Care Unavailable DILLAN MCARTHUR Referring Unavailable [place], EHAB A Admitting Unavailable [place], EHAB A Attending Unavailable [place], EHAB A Surgeon Unavailable NE Procedure Practitioner Unavailab DR DILLAN Arteaga Primary Care Unavailable JESUS MORA Admitting Unavailable [...] disease (3 sources) Atherosclerotic heart disease of [place] coronary artery without angina pectoris; Translations: [ASHD [place] W/O ANGINA PECTORIS] Onset: 10-13-2022 Chronic [...] Onset: 02-01-2023 Chronic Other aftercare (1 source) long-term (current) use of aspirin; Translations: [JOGGER OPERATOR CURRENT USE OF ASPIRIN] Onset: 10-13-2022 Episodic Other aftercare (1 source) Other half-way (current) drug therapy; Translations: [OTH JOGGER OPERATOR CURRENT DRUG THERAPY] Onset: 10-13-2022 Episodic Substance-related disorders (2 sources) Nicotine dependence, unspecified, uncomplicated; Translations: [Nicotine dependence, unspecified, uncomplicated] Onset: 02-01-2023 Chronic Past or Other Problems Problem Classification Problem Date Documented Da te Episodic/Chronic Nonspecific chest pain (6 sources) Chest pain, unspecified; Translations: [CHEST PAIN UNSPECIFIED] Onset: 10-12-2022 Episodic Results Test Name Value Interpretation Reference Range Facility Office Visiton 10-09-2023 Follow-up visit [id number] Nicanor Scott 1960 M Date Provider Department Center 10/09/2023 Lj-NATALIA DA SILVA Family History Problem Relation Age of Onset Hypertension Mother Coronary artery disease Paternal Grandfather Family Status - Relation Status Age at Mother Paternal Grandfather Level of Service:50458 NE OFFICE/OUTPATIENT ESTABLISHED LOW MDM 20 MIN Normal [facility] Office Visiton 02-01-2023 Follow-up visit [id number] Hall 1960 M Date Provider Department Center 02/01/2023 53901-QZYNJODJCMARTINA STONE Family History Problem Relation Age of Onset Hypertension Mother Coronary artery disease Paternal Grandfather Family Status - Relation Status Age at Mother Paternal Grandfather Level of Service:34589 NE OFFICE/OUTPATIENT ESTABLISHED MOD MDM 30-39 MIN Reason for Visit and Comments: Follow-up [358385] - 4-6 week follow up [facility] 36on 01-03-2023 36 Patient called to make us aware that isosorbide gave him a horrible headache and he stopped it after 3 days. I advised him to take Tylenol with it for another 3 days and let us know if the headache continues. He verbalized understanding and will let us know. Normal [facility] Office Visiton 12-27-2022 Follow-up visit [id number] Nicanor Scott 1960 M Date Provider Department Center 12/27/2022 MARTINA BUCKLEY Family History Problem Relation Age of Onset Hypertension Mother Coronary artery disease Paternal Grandfather Family Status - Relation Status Age at Mother Paternal Grandfather Level of Service:90501 NE OFFICE/OUTPATIENT ESTABLISHED MOD MDM 30-39 MIN Reason for Visit and Comments: Coronary Artery Disease [187] Chest Pain [100883] Normal [facility] CBC AUTO DIFFon 10-12-2022 BASO # 0.1 103/ul Normal 0.0-0.1 [facility] Comment on above: Performed By: #### C BC #### [facility] [address] [place] [address] Dr. Jj Rodriguez Basophils/100 WBC (Bld) 0.6 % Normal 0.2-2.0 [facility] Comment on above: Performed By: #### C BC #### [facility] [address] [place] [address] Dr. Jj Rodriguez EO # 0.3 103/ul Normal 0.0-0.7 [facility] Comment on above: Performed By: #### C BC #### [facility] [address] [place] [address] Dr. Jj Rodriguez Eosinophils/100 WBC (Bld) 3.1 % Normal 0.9-7.0 [facility] Comment on above: Performed By: #### C BC #### [facility] [address] [place] [address] Dr. Jj Rodriguez Erythrocyte distribution width (RBC) [Ratio] 12.2 % Normal 11.0-15.0 [facility] Comment on above: Performed By: #### C BC #### [facility] [address] [place] [address] Dr. Jj Rodriguez Hematocrit (Bld) [Volume fraction] 48.5 % Normal 42.0-54.0 [facility] Comment on above: Performed By: #### C BC #### [facility] [address] [place] [address] Dr. Jj Rodriguez Hemoglobin (Bld) [Mass/Vol] 15.8 g/dL Normal 14.0-18.0 [facility] Comment on above: Performed By: #### C BC #### [facility] [address] [place] [address] Dr. Jj Rodriguez IG # 0.03 10e3/ul Normal 0.00-0.03 [facility] Comment on above: Performed By: #### C BC #### [facility] [address] [place] [address] Dr. Jj Rodriguez IG % 0.4 % Normal 0.0-0.5 [facility] Comment on above: Performed By: #### C BC #### [facility] [address] [place] [address] Dr. Jj Rodriguez LYMPH # 3.1 103/ul Normal 1.2-3.8 [facility] Comment on above: Performed By: #### C BC #### [facility] [address] [place] [address] Dr. Jj Rodriguez Lymphocytes/100 WBC (Bld) 38.4 % Normal 20.5-60.0 [facility] Comment on above: Performed By: #### C BC #### [facility] [address] [place] [address] Dr. Jj Rodriguez MANUAL DIFF REQ NO Normal [facility] Comment on above: Performed By: #### C BC #### [facility] [address] [place] [address] Dr. Jj Rodriguez MCH (RBC) [Entitic mass] 30.5 pg Normal 25.9-34.0 [facility] Comment on above: Performed By: #### C BC #### [facility] [address] [place] [address] Dr. Jj Rodriguez MCHC (RBC) [Mass/Vol] 32.6 g/dL Normal 29.9-35.2 [facility] Comment on above: Performed By: #### C BC #### [facility] [address] [place] [address] Dr. Jj Rodriguez MCV (RBC) [Entitic vol] 93.6 fL Normal 80.0-94.0 [facility] Comment on above: Performed By: #### C BC #### [facility] [address] [place] [address] Dr. Jj Rodriguez MONO # 0.7 103/ul Normal 0.3-0.8 [facility] Comment on above: Performed By: #### C BC #### [facility] [address] [place] [address] Dr. Jj Rodriguez Monocytes/100 WBC (Bld) 8.8 % Normal 1.7-12.0 [facility] Comment on above: Performed By: #### C BC #### [facility] [address] [place] [address] Dr. Jj Rodriguez NEUT # 4.0 103/ul Normal 1.4-6.5 [facility] Comment on above: Performed By: #### C BC #### [facility] [address] [place] [address] Dr. Jj Rodriguez Neutrophils/100 WBC (Bld) 48.7 % Normal 43.0-75.0 [facility] Comment on above: Performed By: #### C BC #### [facility] [address] [place] [address] Dr. Jj Rodriguez Platelet mean volume (Bld) [Entitic vol] 10.7 fL Normal 9.5-13.5 [facility] Comment on above: Performed By: #### C BC #### [facility] [address] [place] [address] Dr. Jj Rodriguez PLT 303 103/ul Normal 150-450 [facility] Comment on above: Performed By: #### C BC #### [facility] [address] [place] [address] Dr. Jj Rodriguez RBC 5.18 106/ul Normal 4.70-6.10 [facility] Comment on above: Performed By: #### C BC #### [facility] [address] [place] [address] Dr. Jj Rodriguez WBC 8.2 103/ul Normal 4.0-11.0 [facility] Comment on above: Performed By: #### C BC #### [facility] [address] [place] [address] Dr. Jj Rodriguez PROF CHEM 8 (BAS METB)on Anion gap [Moles/Vol] 11.7 mmol/L Normal [facility] Comment on above: Performed By: #### H STROPN, BMP #### [facility] [address] [place] [address] Dr. Jj Rodriguez Calcium [Mass/Vol] 8.8 mg/dL Normal 8.5-10.1 [facility] Comment on above: Performed By: #### H STROPN, BMP #### [facility] [address] [address] [address] Jj Rodriguez Chloride [Moles/Vol] 104 mmol/L Normal 98-107 [facility] Comment on above: Performed By: #### H STROPN, BMP #### [facility] [address] [address] [address] Jj Rodriguez CO2 [Moles/Vol] 31.4 mmol/L Normal 21.0-32.0 [facility] Comment on above: Performed By: #### H STROPN, BMP #### [facility] [address] [place] [address] Dr. Jj Rodriguez Creatinine [Mass/Vol] 0.82 mg/dL Normal 0.70-1.30 [facility] Comment on above: Performed By: #### H STROPN, BMP #### [facility] [address] [place] [address] Dr. Jj Rodriguez EGFR-AF MONGOLIAN >60 Normal >=60 [facility] Comment on above: Performed By: #### H STROPN, BMP #### [facility] [address] [place] [address] Dr. Jj Rodriguez EGFR-NON AF MONGOLIAN >60 Normal >=60 [facility] Comment on above: Performed By: #### H STROPN, BMP #### [facility] [address] [address] [address] Jj Rodriguez Glucose [Mass/Vol] 123 mg/dL Critically high 74-106 [facility] Comment on above: Performed By: #### H STROPN, BMP #### [facility] [address] [place] [address] Dr. Jj Rodriguez Potassium [Moles/Vol] 4.1 mmol/L Normal 3.5-5.1 [facility] Comment on above: Performed By: #### H STROPN, BMP #### [facility] [address] [place] [address] Dr. Jj Rodriguez Sodium [Moles/Vol] 143 mmol/L Normal 136-145 [facility] Comment on above: Performed By: #### H WIN, BMP #### [facility] [address] [place] [address] Dr. Jj Rodriguez Urea nitrogen [Mass/Vol] 13.0 mg/dL Normal 7.0-18.0 [facility] Comment on above: Performed By: #### H WIN, BMP #### [facility] [address] [place] [address] Dr. Jj Rodriguez Urea nitrogen/Creatinine [Mass ratio] 15.9 mg/mg Normal [facility] Comment on above: Performed By: #### H WIN, BMP #### [facility] [address] [place] [address] Dr. Jj Rodriguez TROPONIN, HIGH SENSITIVITYon 10-12-2022 HSTROP 5.9 pg/mL Normal 4.0-76.1 [facility] Comment on above: Result Comment: CUT- OFF POINTS HAVE BEEN ESTABLISHED BASED ON THE FOURTH UNIVERSAL DEFINITIONS OF MYOCARDIAL INFARCTION. THE UPPER REFERENCE LIMIT (URL) OF TROPONIN, DEFINED THE 99TH PERCENTILE OF cTnI DISTRIBUTION IN A REFERENCE POPULATION, HAS BEEN CONFIRMED THE DECISION THRESHOLD FOR PA DIAGNOSIS. Performed By: #### Fannie WALDEN #### [facility] [address] [place] [address] Dr. Jj Rodriguez HSTROP 6.2 pg/mL Normal 4.0-76.1 [facility] Comment on above: Result Comment: CUT- OFF POINTS HAVE BEEN ESTABLISHED BASED ON THE FOURTH UNIVERSAL DEFINITIONS OF MYOCARDIAL INFARCTION. THE UPPER REFERENCE LIMIT (URL) OF TROPONIN, DEFINED THE 99TH PERCENTILE OF cTnI DISTRIBUTION IN A REFERENCE POPULATION, HAS BEEN CONFIRMED THE DECISION THRESHOLD FOR PA DIAGNOSIS. Performed By: #### H WIN, BMP #### [facility] [address] [place] [address] Dr. Jj Rodriguez XR CHEST 1 Von [...] by: SY BANKS Date: 2022-10-12 10:37 Normal [facility] CREATININE BLOODon Creatinine [Mass/Vol] 0.90 mg/dL Normal 0.70-1.30 [facility] Comment on above: Order Comment: No: D o not add to previous draw Performed By: #### 2 5656 #### [facility] [address] [place] [address], [facility] GFR/1.73 sq M.predicted among blacks MDRD (S/P/Bld) [Vol rate/Area] mL/min/{1.73_m2} Normal >60 [facility] Comment on above: Order Comment: No: D o not add to previous draw Performed By: #### 2 5656 #### [facility] [address] [place] [address], [facility] GFR/1.73 sq M.predicted among non-blacks MDRD (S/P/Bld) [Vol rate/Area] mL/min/{1.73_m2} Normal >60 [facility] Comment on above: Order Comment: No: D o not add to previous draw Performed By: #### 2 5656 #### [facility] [address] [facility] [place] [address], [facility] Cardiovascular Lab Reporton 12-02-2020 Cardiovascular Lab Report [facility] Patient Name: Nicanor Scott [facility] Lisa MR #: [id number] Department of Physician: Navin Desai M.D. Division of Service Date: 12/01/2020 Cardiology Birthdate: 1960 Adult Cardiovascular Room #: 3AB 889429 Services [facility] [address] [address] Cardiovascular Laboratory Report FINAL IMPRESSIONS: 1. Severe [...] the right radial artery was obtained. A 6-Monegasque glide sheath was inserted without difficulty. Bilateral [...] was performed. This was upsized to a 6-Monegasque 11 cm sheath. A 6-Monegasque XB3.5 guide catheter was advanced over a J-wire and coaxially engaged into the left main ostium. A 6-Monegasque JR4 guide catheter was advanced through the [...] After removal of the guide catheters, a 6-Monegasque MynxGrip closure device was deployed over the [...] w (more content not included)... Normal [facility] HEMOGLOBIN A1Con 12-02-2020 Glucose [Moles/Vol] 108 mmol/L Normal [facility] Comment on above: Order Comment: No: D o not add to previous draw Performed By: #### 3 1969 #### [facility] [address] [place] [address], [facility] HbA1c (Bld) [Mass fraction] 5.4 % Normal 4.0-6.0 [facility] Comment on above: Order Comment: No: D o not add to previous draw Performed By: #### 3 1791 #### [facility] [address] [place] [address], [facility] LIPID PROFILEon 12-02-2020 Cholesterol [Mass/Vol] 160 mg/dL Normal 120-200 [facility] Comment on above: Order Comment: No: D o not add to previous draw Result Comment: CHOL ESTEROL REFERENCE RANGE: 20 YEARS AND OLDER CARDIOVASCULAR RISK Less than 200 mg/dl Low Risk 200 to 239 mg/dl Borderline Risk 240 mg/dl and greater High Risk Performed By: #### 4 6413 #### [facility] [address] [place] [address], [facility] Cholesterol in HDL [Mass/Vol] 21 mg/dL Low 23-92 [facility] Comment on above: Order Comment: No: D o not add to previous draw Result Comment: Slig ht variation in normal range could be due to gender and/or age. HDL CHOLESTEROL REFERENCE RANGE: 20 years and older Cardiovascular Risk > or =60 mg/dL Desirable 40 TO 59 mg/dL Low Risk <40 mg/dL High Risk Performed By: #### 4 [id number] #### [facility] [address] [place] [address], [facility] Cholesterol in LDL [Mass/Vol] 112 mg/dL Normal 0-130 [facility] Comment on above: Order Comment: No: D o not add to previous draw Result Comment: LDL IS A CALCULATION LDL IS ONLY VALID IF THE TRIG IS LESS THAN 400. Performed By: #### 4 [id number] #### [facility] [address] [place] [address], [facility] Cholesterol.total/Ch olesterol in HDL [Mass ratio] 7.6 {ratio} High 0.0-4.5 [facility] Comment on above: Order Comment: No: D o not add to previous draw Performed By: #### 4 6413 #### [facility] [address] [place] [address], [place] NON-HDL CHOLESTEROL 139 mg/dL Normal [facility] Comment on above: Order Comment: No: D o not add to previous draw Performed By: #### 4 [id number] #### [facility] [address] Triglyceride [Mass/Vol] 137 mg/dL Normal 40-149 [facility] Comment on above: Order Comment: No: D o not add to previous draw Result Comment: TRIG LYCERIDE REFERENCE RANGE: 20 YEARS AND OLDER CARDIOVASCULAR RISK LESS THAN 150 mg/dl LOW RISK 150 TO 199 mg/dl BORDERLINE RISK 200 mg/dl AND GREATER HIGH RISK Performed By: #### 4 [id number] #### [facility] [address] VLDL CHOL 27 mg/dL Normal 0-40 [facility] Comment on above: Order Comment: No: D o not add to previous draw Performed By: #### 4 [id number] #### [facility] [address] Encounters Encounter Date Encounter Type Care Provider Facility Start: 10-09-2023 End: 10-09-2023 ambulatory [facility] Start: 02-01-2023 End: [facility] Start: 12-27-2022 End: 12-27-2022 ambulatory [facility] Start: 10-12-2022 End: 10-12-[address] DILLAN MCARTHUR Facility:[facility] Start: 05-12-[address] DOCTOR COLEY Facility :[facility] Start: 12-01-2020 End: 12-02-2020 ambulatory DILLAN MCARTHUR Facility:[facility] Procedures Date Procedure Procedure Detail Performing Clinician Start: 12-02-2020 ANES THER INTERVEN RAD LOGAN MCARTHUR Start: 12-02-2020 PRQ CARD REVASC CHRONIC 1VSL EHAB A [place] Start: 12-02-2020 PRQ CARD STENT W/ANGIO 1 [facility] [place] Payers Date Payer Category Payer Unknown [id number] 2020 Unknown [id number] 50 1960 Unknown [id number] 1960 Unknown [id number] 1960 Unknown [id number] 1959 Unknown [id number] Progress note 10-09-2023 Note Date & Type Note Facility 10-09-2023 Note [facility] Cardiology Clinic Note Chief Complaint: Patient [...] Silva MD, MPH, (more content not included)... [facility] Progress note 02-01-2023 Note Date & Type Note Facility 02-01-2023 Note Patient is here toda y for a 4-6 week follow up Review of Systems Musculoskeletal: Positive for back pain. Neurological: Positive for headaches. All other systems reviewed and are negative. [facility] Progress note 02-01-2023 Note Date & Type [...] follow-up. He presented to the [facility] on 10/12/2022 for evaluation of chest pain [...] visit: Coronary art (more content not included)... [facility] Progress note 12-27-2022 Note Date & Type Note Facility 12-27-2022 Note Cardiology Clinic No te Subjective Nicanor Scott is a 62 y.o. year old male patient with coronary artery disease status post circumflex stents x3 and RCA stent 12/01/2020, lipidemia, and tobacco use, seen in posthospital follow-up. He presented to the [facility] on 10/12/2022 for evaluation of chest pain [...] for this visit: Coronary artery disease involving [place] coronary artery of [place] heart, unspecified whether angina present - isosorbide [...] agreeable to start (more content not included)... [facility] Summary Purpose Family History No Family History Records FoundNo Family History Records FoundNo Family History Records Found Advance Directives No Advanced Directives Records FoundNo Advanced Directives Records FoundNo Advanced Directives Records Found Additional Source Comments (unrecognized sect ion and content) No Status Records FoundNo Status Records FoundNo Status Records Found INFORMATION SOURCE (unrecogn ized section and content) DATE CREATED AUTHOR 01/20/2021 [facility] DATE CREATED AUTHOR AUTHOR'S ORGANIZ ATION 10/17/2022 [facility] DATE CREATED AUTHOR AUTHOR'S ORGANIZ ATION 10/09/2023 [facility] FOR RECORDS PERTAINING TO PATIENTS WHO ARE [...] BE BASED ON THE PRIMARY CLINICAL RECORDS. [employer] provides no warranty or guarantee of the accuracy or completeness of information in this document.
== END 2024-10-18 08:18 | disposition home or self-care (01) ==
LOC: CT 08:17
DX: R91.8 Other nonspecific abnormal finding of lung field (principal); F17.210 Nicotine dependence, cigarettes, uncomplicated
CPT/HCPCS: 71271

== ENCOUNTER 2024-11-07 09:26 | Outpatient (OUT) | payer OTHER, SELFPAY ==
--- OUTSIDE RECORDS SUMMARY | 2024-11-07 09:33 | XMS_ITS | CCD ---
Author Organization [facility] Care Team Providers Care Paste Thinner Name Role Phone DILLAN MCARTHUR Primary Care Unavailable DILLAN MCARTHUR Referring Unavailable ELTAHAWY, EHAB A Admitting Unavailable ELTAHAWY, EHAB A Attending Unavailable ELTAHAWMaribeth, EHAB A Surgeon Unavailable [place] Procedure Practitioner Unavailab DR DILLAN Arteaga Primary Care Unavailable JESUS MORA Admitting Unavailable JESUS MORA Consulting Unavailable JESUS MORA Attending Unavailable SY BANKS Consulting Unavailable DR SARTHAK COLEY Primary Care Unavailable MILES GUZMÁN Admitting Unavailable MILES GUZMÁN Attending Unavailable PREM DA SILVA Attending Unavailable Problems Problem Classification Problem Date Documented Date Episodic/Chronic Coronary atherosclerosis and other heart disease (3 sources) Atherosclerotic heart disease of [place] coronary artery without angina pectoris; Translations: [ASHD BISHOP PAIUTE CA W/O ANGINA PECTORIS] Onset: 10-13-2022 Chronic Coronary atherosclerosis and other heart disease (1 source) Presence of coronary angioplasty implant and graft; Translations: [PRESENCE COR ANGPLSTY IMPLANT AND GRAFT] Onset: 10-13-2022 Episodic Disorders of lipid metabolism (2 sources) Mixed hyperlipidemia; Translations: [Mixed hyperlipidemia] Onset: 10-23-2024 Chronic Essential hypertension (2 sources) Essential (primary) hypertension; Translations: [Essential (primary) hypertension] Onset: 10-23-2024 Chronic Nonspecific chest pain (4 sources) Chest pain, unspecified; Translations: [CHEST PAIN UNSPECIFIED] Onset: 10-12-2022 Episodic Other aftercare (1 source) nursing home (current) use of aspirin; Translations: [MCFP CURRENT USE OF ASPIRIN] Onset: 10-13-2022 Episodic Other aftercare (1 source) Other terminal computer operator (current) drug therapy; Translations: [OTH BUSINESS AGENT CURRENT DRUG THERAPY] Onset: 10-13-2022 Episodic Results Test Name Value Interpretation Reference Range Facility Office Visiton 10-23-2024 Follow-up visit [id number] Nicanor Scott 1960 M Date Provider Department Center 10/23/2024 Lj-PREM DA SILVA LOGAN [facility] Family History Problem Relation Age of Onset Hypertension Mother Coronary artery disease Paternal Grandfather Family Status - Relation Status Age at Mother Paternal Grandfather Level of Service:60383 CA OFFICE/OUTPATIENT ESTABLISHED MOD MDM 30 MIN Normal [facility] CBC AUTO DIFFon 10-12-2022 BASO # 0.1 103/ul Normal 0.0-0.1 [facility] Comment on above: Performed By: #### C BC #### [facility] [address] [place] [address] Dr. Jj Rodriguez Basophils/100 WBC (Bld) 0.6 % Normal 0.2-2.0 [facility] Comment on above: Performed By: #### C BC #### [facility] [address] [place] [address] Dr. Jj Rodriguez EO # 0.3 103/ul Normal 0.0-0.7 [facility] Comment on above: Performed By: #### C BC #### [facility] [address] [place] [address] Dr. Jj Rodriguez Eosinophils/100 WBC (Bld) 3.1 % Normal 0.9-7.0 [facility] Comment on above: Performed By: #### C BC #### [facility] [address] [place] [address] Dr. Jj Rodriguez Erythrocyte distribution width (RBC) [Ratio] 12.2 % Normal 11.0-15.0 [facility] Comment on above: Performed By: #### C BC #### [facility] [address] [place] [address] Dr. Jj Rodriguez Hematocrit (Bld) [Volume fraction] 48.5 % Normal 42.0-54.0 [facility] Comment on above: Performed By: #### C BC #### [facility] [address] [place] [address] Dr. Jj Rodriguez Hemoglobin (Bld) [Mass/Vol] 15.8 g/dL Normal 14.0-18.0 [facility] Comment on above: Performed By: #### C BC #### [facility] [address] [place] [address] Dr. Jj Rodriguez IG # 0.03 10e3/ul Normal 0.00-0.03 [facility] Comment on above: Performed By: #### C BC #### [facility] [address] [place] [address] Dr. Jj Rodriguez IG % 0.4 % Normal 0.0-0.5 [facility] Comment on above: Performed By: #### C BC #### [facility] [address] [place] [address] Dr. Jj Rodriguez LYMPH # 3.1 103/ul Normal 1.2-3.8 [facility] Comment on above: Performed By: #### C BC #### [facility] [address] [place] [address] Dr. Jj Rodriguez Lymphocytes/100 WBC (Bld) 38.4 % Normal 20.5-60.0 [facility] Comment on above: Performed By: #### C BC #### [facility] [address] [place] [address] Dr. Jj Rodriguez MANUAL DIFF REQ NO Normal [facility] Comment on above: Performed By: #### C BC #### [facility] [address] [place] [address] Dr. Jj Rodriguez MCH (RBC) [Entitic mass] 30.5 pg Normal 25.9-34.0 [facility] Comment on above: Performed By: #### C BC #### [facility] [address] [place] [address] Dr. Jj Rodriguez MCHC (RBC) [Mass/Vol] 32.6 g/dL Normal 29.9-35.2 [facility] Comment on above: Performed By: #### C BC #### [facility] [address] [place] [address] Dr. Jj Rodriguez MCV (RBC) [Entitic vol] 93.6 fL Normal 80.0-94.0 [facility] Comment on above: Performed By: #### C BC #### [facility] [address] [address] [address] Jj Rodriguez MONO # 0.7 103/ul Normal 0.3-0.8 [facility] Comment on above: Performed By: #### C BC #### [facility] [address] [address] [address] Jj Rodriguez Monocytes/100 WBC (Bld) 8.8 % Normal 1.7-12.0 [facility] Comment on above: Performed By: #### C BC #### [facility] [address] [address] [address] Jj Rodriguez NEUT # 4.0 103/ul Normal 1.4-6.5 [facility] Comment on above: Performed By: #### C BC #### [facility] [address] [address] [address] Jj Rodriguez Neutrophils/100 WBC (Bld) 48.7 % Normal 43.0-75.0 [facility] Comment on above: Performed By: #### C BC #### [facility] [address] [address] [address] Jj Rodriguez Platelet mean volume (Bld) [Entitic vol] 10.7 fL Normal 9.5-13.5 [facility] Comment on above: Performed By: #### C BC #### [facility] [address] [address] [address] Jj Rodriguez PLT 303 103/ul Normal 150-450 [facility] Comment on above: Performed By: #### C BC #### [facility] [address] [address] [address] Jj Rodriguez RBC 5.18 106/ul Normal 4.70-6.10 [facility] Comment on above: Performed By: #### C BC #### [facility] [address] [address] [address] Jj Rodriguez WBC 8.2 103/ul Normal 4.0-11.0 [facility] Comment on above: Performed By: #### C BC #### [facility] [address] [address] [address] Jj Rodriguez PROF CHEM 8 (BAS METB)on Anion gap [Moles/Vol] 11.7 mmol/L Normal [facility] Comment on above: Performed By: #### H STROPN, BMP #### [facility] [address] [place] [address] Dr. Jj Rodriguez Calcium [Mass/Vol] 8.8 mg/dL Normal 8.5-10.1 [facility] Comment on above: Performed By: #### H STROPN, BMP #### [facility] [address] [place] [address] Dr. Jj Rodriguez Chloride [Moles/Vol] 104 mmol/L Normal 98-107 [facility] Comment on above: Performed By: #### H STROPN, BMP #### [facility] [address] [place] [address] Dr. Jj Rodriguez CO2 [Moles/Vol] 31.4 mmol/L Normal 21.0-32.0 [facility] Comment on above: Performed By: #### H STROPN, BMP #### [facility] [address] [place] [address] Dr. Jj Rodriguez Creatinine [Mass/Vol] 0.82 mg/dL Normal 0.70-1.30 [facility] Comment on above: Performed By: #### H STROPN, BMP #### [facility] [address] [place] [address] Dr. Jj Rodriguez EGFR-AF FILIPINO >60 Normal >=60 [facility] Comment on above: Performed By: #### H STROPN, BMP #### [facility] [address] [place] [address] Dr. Jj Rodriguez EGFR-NON AF FILIPINO >60 Normal >=60 [facility] Comment on above: Performed By: #### H STROPN, BMP #### [facility] [address] [place] [address] Dr. Jj Rodriguez Glucose [Mass/Vol] 123 mg/dL Critically high 74-106 [facility] Comment on above: Performed By: #### H STROPN, BMP #### [facility] [address] [address] [address] Jj Rodriguez Potassium [Moles/Vol] 4.1 mmol/L Normal 3.5-5.1 [facility] Comment on above: Performed By: #### H STROPN, BMP #### [facility] [address] [address] [address] Jj Rodriguez Sodium [Moles/Vol] 143 mmol/L Normal 136-145 [facility] Comment on above: Performed By: #### H STROPN, BMP #### [facility] [address] [address] [address] Jj Rodriguez Urea nitrogen [Mass/Vol] 13.0 mg/dL Normal 7.0-18.0 [facility] Comment on above: Performed By: #### H STROPN, BMP #### [facility] [address] [place] [address] Dr. Jj Rodriguez Urea nitrogen/Creatinine [Mass ratio] 15.9 mg/mg Normal [facility] Comment on above: Performed By: #### H STROPN, BMP #### [facility] [address] [place] [address] Dr. Jj Rodriguez TROPONIN, HIGH SENSITIVITYon 10-12-2022 HSTROP 5.9 pg/mL Normal 4.0-76.1 [facility] Comment on above: Result Comment: CUT- OFF POINTS HAVE BEEN ESTABLISHED BASED ON THE FOURTH UNIVERSAL DEFINITIONS OF MYOCARDIAL INFARCTION. THE UPPER REFERENCE LIMIT (URL) OF TROPONIN, DEFINED THE 99TH PERCENTILE OF cTnI DISTRIBUTION IN A REFERENCE POPULATION, HAS BEEN CONFIRMED THE DECISION THRESHOLD FOR DE DIAGNOSIS. Performed By: #### H STROPN #### [facility] [address] [place] [address] Dr. Jj Rodriguez HSTROP 6.2 pg/mL Normal 4.0-76.1 [facility] Comment on above: Result Comment: CUT- OFF POINTS HAVE BEEN ESTABLISHED BASED ON THE FOURTH UNIVERSAL DEFINITIONS OF MYOCARDIAL INFARCTION. THE UPPER REFERENCE LIMIT (URL) OF TROPONIN, DEFINED THE 99TH PERCENTILE OF cTnI DISTRIBUTION IN A REFERENCE POPULATION, HAS BEEN CONFIRMED THE DECISION THRESHOLD FOR DE DIAGNOSIS. Performed By: #### H STRORENA, [facility] #### [facility] [address] [address] [address] Jj Rodriguez XR CHEST 1 Von [...] by: SY BANKS Date: 2022-10-12 10:37 Normal [facility] CREATININE BLOODon Creatinine [Mass/Vol] 0.90 mg/dL Normal 0.70-1.30 [facility] Comment on above: Order Comment: No: D o not add to previous draw Performed By: #### 2 5656 #### [facility] [address] [facility] [place] [address], [facility] GFR/1.73 sq M.predicted among blacks MDRD (S/P/Bld) [Vol rate/Area] mL/min/{1.73_m2} Normal >60 [facility] Comment on above: Order Comment: No: D o not add to previous draw Performed By: #### 2 5656 #### [facility] [address] [facility] [address], [facility] GFR/1.73 sq M.predicted among non-blacks MDRD (S/P/Bld) [Vol rate/Area] mL/min/{1.73_m2} Normal >60 [facility] Comment on above: Order Comment: No: D o not add to previous draw Performed By: #### 2 5656 #### [facility] [address] [place] [address], [place] Cardiovascular Lab Reporton 12-02-2020 Cardiovascular Lab Report [facility] Patient Name: Nicanor Scott [facility] Lisa MR #: [id number] Department of Physician: Navin Desai M.D. Division of Service Date: 12/01/2020 Cardiology Birthdate: 1960 Adult Cardiovascular Room #: 3AB [id number] [facility] [address] [place] [address] Cardiovascular Laboratory Report FINAL IMPRESSIONS: 1. Severe [...] the right radial artery was obtained. A 6-Liberian glide sheath was inserted without difficulty. Bilateral [...] was performed. This was upsized to a 6-Liberian 11 cm sheath. A 6-Liberian XB3.5 guide catheter was advanced over a J-wire and coaxially engaged into the left main ostium. A 6-Liberian JR4 guide catheter was advanced through the [...] After removal of the guide catheters, a 6-Liberian MynxGrip closure device was deployed over the [...] w (more content not included)... Normal [facility] HEMOGLOBIN A1Con 12-02-2020 Glucose [Moles/Vol] 108 mmol/L Normal [facility] Comment on above: Order Comment: No: D o not add to previous draw Performed By: #### 3 1791 #### [facility] [address] [place] [address], [facility] HbA1c (Bld) [Mass fraction] 5.4 % Normal 4.0-6.0 [facility] Comment on above: Order Comment: No: D o not add to previous draw Performed By: #### 3 1791 #### [facility] [address] [place] [address], [facility] LIPID PROFILEon 12-02-2020 Cholesterol [Mass/Vol] 160 mg/dL Normal 120-200 [facility] Comment on above: Order Comment: No: D o not add to previous draw Result Comment: CHOL ESTEROL REFERENCE RANGE: 20 YEARS AND OLDER CARDIOVASCULAR RISK Less than 200 mg/dl Low Risk 200 to 239 mg/dl Borderline Risk 240 mg/dl and greater High Risk Performed By: #### 4 6413 #### [facility] [address] [place] [address], [facility] Cholesterol in HDL [Mass/Vol] 21 mg/dL Low 23-92 [facility] Comment on above: Order Comment: No: D o not add to previous draw Result Comment: Slig ht variation in normal range could be due to gender and/or age. HDL CHOLESTEROL REFERENCE RANGE: 20 years and older Cardiovascular Risk > or =60 mg/dL Desirable 40 TO 59 mg/dL Low Risk <40 mg/dL High Risk Performed By: #### 4 6413 #### [facility] [address] [place] [address], [place] Cholesterol in LDL [Mass/Vol] 112 mg/dL Normal 0-130 [facility] Comment on above: Order Comment: No: D o not add to previous draw Result Comment: LDL IS A CALCULATION LDL IS ONLY VALID IF THE TRIG IS LESS THAN 400. Performed By: #### 4 6413 #### [facility] [address] [place] [address], [place] Cholesterol.total/Ch olesterol in HDL [Mass ratio] 7.6 {ratio} High 0.0-4.5 [facility] Comment on above: Order Comment: No: D o not add to previous draw Performed By: #### 4 6413 #### [facility] [address] [place] [address], [facility] NON-HDL CHOLESTEROL 139 mg/dL Normal [facility] Comment on above: Order Comment: No: D o not add to previous draw Performed By: #### 4 6413 #### [facility] [address] [place] [address], [facility] Triglyceride [Mass/Vol] 137 mg/dL Normal 40-149 [facility] Comment on above: Order Comment: No: D o not add to previous draw Result Comment: TRIG LYCERIDE REFERENCE RANGE: 20 YEARS AND OLDER CARDIOVASCULAR RISK LESS THAN 150 mg/dl LOW RISK 150 TO 199 mg/dl BORDERLINE RISK 200 mg/dl AND GREATER HIGH RISK Performed By: #### 4 6413 #### [facility] [address] [place] [address], [facility] VLDL CHOL 27 mg/dL Normal 0-40 [facility] Comment on above: Order Comment: No: D o not add to previous draw Performed By: #### 4 6413 #### [facility] [address] [place] [address], [facility] Encounters Encounter Date Encounter Type Care Provider Facility Start: 10-23-2024 End: 10-23-2024 ambulatory PREM DA SILVA [facility] Start: 10-12-2022 End: 10-12-[address] DILLAN MCARTHUR Facility:[facility] Start: 05-12-[address] DOCTOR COLEY Facility :[facility] Start: 12-01-2020 End: 12-02-2020 ambulatory DILLAN MCARTHUR Facility:[facility] Procedures Date Procedure Procedure Detail Performing Clinician Start: 12-02-2020 ANES THER INTERVEN RAD CARD DILLAN MCARTHUR Start: 12-02-2020 PRQ CARD REVASC CHRONIC 1VSL EHAB Lloyd DA SILVA Start: 12-02-2020 PRQ CARD STENT W/ANGIO 1 [facility] A GIORGIO Payers Date Payer Category Payer Unknown [id number] 2020 Unknown [id number] 50 1960 Unknown [id number] 2.16.8 [id number] 1960 Unknown [id number] 2.16.84 [id number] 1960 Unknown [id number] [id number] [id number] 1959 Unknown [id number] Progress note 10-23-2024 Note Date & Type Note Facility 10-23-2024 Note [facility] Cardiology Clinic Note Chief Complaint: Patient here for 1 year follow up CAD, hyperlipidemia, and hypertension. Had liver and lipid profile a few weeks ago. He is only taking plavix and aspirin currently. Denies chest pain, SOB, and palpitations. HPI: Nicanor Scott is a 64 y.o. male patient [...] angioplasty and Synergy drug-eluting stent placement Myocardial (more content not included)... [facility] Summary Purpose Family History No [...] DATE CREATED AUTHOR 01/20/2021 [facility] DATE CREATED AUTHOR AUTHOR'S ORGANIZ ATION 10/17/2022 [facility] DATE CREATED AUTHOR AUTHOR'S ORGANIZ ATION 10/25/2024 [facility] FOR RECORDS PERTAINING TO PATIENTS WHO [...] BE BASED ON THE PRIMARY CLINICAL RECORDS. [employer] [facility]. provides no warranty or guarantee of the accuracy or completeness of information in this document.
--- NOTE | 2024-11-07 09:51 | CA_ITS ---
Patient Name: BREN ANGEL MR#: [id number] : 1960 Exam Date: 11/07/2024 Ordering Doctor: DR PREM ALVARES M.D. ECHOCARDIOGRAM REPORT PROCEDURE: CA ECHO DOPPLER COMPLETE INDICATIONS: CAD COMPARISON: None. DESCRIPTION: COMPLETE ECHOCARDIOGRAM Real-time transthoracic echocardiography with 2D, M-mode, spectral and color flow Doppler performed. QUALITY: Technical quality was good. LEFT VENTRICLE: Normal chamber size. Normal left ventricular wall thickness. Global left ventricular systolic function is normal. LV EF: Estimated left ventricular ejection fraction is 65%. DIASTOLIC: Normal diastolic function. ATRIAL SEPTUM: LEFT ATRIUM: Mild dilatation. RIGHT ATRIUM: Normal chamber size. RIGHT VENTRICLE: Normal chamber size. Normal right ventricular systolic function. TRICUSPID VALVE: Normal mobility and thickness. No stenosis with trivial regurgitation. No evidence of pulmonary hypertension. RVSP 20 mmHg MITRAL VALVE: Normal mobility and thickness. No evidence of mitral valve stenosis. There is no mitral annular calcification. Trivial mitral regurgitation. AORTIC VALVE: Normal trileaflet appearance. No visible sclerosis. Normal leaflet mobility. No evidence of aortic valve stenosis. No aortic regurgitation. AORTIC ROOT: Normal diameter and appearance. Normal size ascending aorta measuring 3.3 cm. PULMONIC VALVE: Normal thickness and mobility. No stenosis. No regurgitation. PERICARDIUM: No evidence of pericardial effusion. IVC: Collapses with inspirations. Normal size. PLEURA: CONCLUSION: 1. Normal ventricular size and systolic function. LVEF is 65%. 2. No significant valvular dysfunction. 3. Normal diastolic function. 4. Normal right-sided pressures. Adult Echocardiography Procedure Report Left Ventricle LVEDD (3.7 - 5.6 cm): 5.38 cm LVESD (2.2 - 4.0 cm): 3.95 cm LVIVS thickness (0.6 - 1.2 cm): 1.07 cm LVPW thickness (0.5 - 1.0 cm): 0.93 cm e': 0.11 m/s E - e': 6.02 LVOT Max Gradient: 2.21 mm[Hg] LVOT Area (cm2): 0.74 m/s Peak Velocity (LVOT): 0.74 m/s Mean Velocity (LVOT): 0.54 m/s LVOT Diameter 2.25 cm Left Ventricular Ejection Fraction: 65 % Left Atrium LA Volume Index (2D A2C): 42.19 ml/m2 Left Atrium Systolic Dimension: 3.74 cm Mitral Valve MV E to A Ratio: 1 Mitral Valve A-Wave Peak Velocity: 0.63 m/s Mitral Valve E-Wave Peak Velocity: 0.63 m/s Right Ventricle RV Internal Diastolic Dimension: 4.00 cm Aorta AO Root Diam: 3.10 cm Ascending Ao Diam: 3.30 cm Aortic Valve AoV Area (Peak Barak): 2.15 cm2, 2.15 cm2 AoV Area (VTI): 2.23 cm2, 2.23 cm2 Peak Velocity(Antegrade Flow): 1.37 m/s Peak Gradient(Antegrade Flow): 7.50 mm[Hg] Mean Velocity(Antegrade Flow): 0.97 m/s Mean Gradient(Antegrade Flow): 4.19 mm[Hg] Velocity Time Integral: 32.74 cm Tricuspid Valve Peak Velocity (Regurgitant Flow): 2.04 m/s, 1.97 m/s, 2.01 m/s Pulmonic Valve Mean Gradient: 2.39 mm[Hg], 1.67 mm[Hg] Mean Velocity: 0.72 m/s, 0.60 m/s Peak Velocity: 0.98 m/s Peak Gradient: 4.39 mm[Hg], 3.32 mm[Hg] Right Atrium Right Atrium Systolic Pressure: 54.12 ml, 54.12 ml Dictated by: Richard Sellers M.D. on 11/07/2024 at 17:29 Approved by: Richard Sellers M.D. on 11/07/2024 at 17:32
== END 2024-11-07 09:27 | disposition home or self-care (01) ==
LOC: CARD 09:27
PROVIDERS: Visit Provider Internal Medicine Interventional Cardiology
DX: I25.10 Atherosclerotic heart disease of native coronary artery without angina pectoris (principal); I10 Essential (primary) hypertension
CPT/HCPCS: 93306

== ENCOUNTER 2025-02-11 07:12 | Outpatient (OUT) | payer OTHER, SELFPAY ==
--- OUTSIDE RECORDS SUMMARY | 2024-10-23 10:29 | XMS_ITS ---
Author Name Auto Generated Organization [facility] Care Team Providers Care Jewelry Mold Maker Name Role Phone PREM ALVARES Attending Unavailable PROBLEMS DATE TYPE CONDITION / CODE ATTENDING STATUS [facility] 10/23/2024 Admitting Diagnosis Atherosclerotic heart disease of [place] coronary artery without angina pectoris / I25.10(ICD-10) PREM ALVARES Active [facility] 10/23/2024 Admitting Diagnosis Mixed hyperlipidemia / E78.2(ICD-10) PREM ALVARES Active [facility] 10/23/2024 Admitting Diagnosis Essential (primary) hypertension / I10(ICD-10) GIORGIO Active [facility] PROCEDURES No Procedure Records Found RESULTS 36 Observed: 11/11/2024 9:17 AM Status: COMP LETED Source: [facility] PT INFORMED OFFICE VISIT Observed: 10/23/2024 9:30 AM Status: COMPLETED Source: [facility] [id number] Bren Scott 09/1959 M Date Provider Department Center 10/23/2024 271-PREM ALVARES [facility] Family History Problem Relation Age of Onset Hypertension Mother Coronary artery disease Paternal Grandfather Family Status - Relation Status Age at Mother Paternal Grandfather Level of Service:90059 CO OFFICE/OUTPATIENT ESTABLISHED MOD MDM 30 MIN PROGRESS Observed: 10/23/2024 9:30 AM Status: COMPLETED Source: [facility] Cardiology Clinic Note Chief Complaint: Patient here for 1 year follow up CAD, hyperlipidemia, and hypertension. Had liver and lipid profile a few weeks ago. He is only taking plavix and aspirin currently. Denies chest pain, SOB, and palpitations. HPI: Bren Scott is a 64 y.o. male patient with coronary artery disease status post circumflex stents x3 and RCA stent 12/01/2020, hyperlipidemia, and tobacco use. Doing well; no new symptoms Update 10/23/2024: Doing well; no new symptoms Had a lengthy discussion regarding statin therapy, target LDL and cholesterol levels, and his lack of improvement on statins Cardiology ROS: Review of Systems Musculoskeletal: Positive for back pain. All other systems reviewed and are negative. Past Medical History He has a past medical history of Coronary artery disease, Hyperlipidemia, Hypertension, and Palpitations. Surgical History He has a past surgical history that includes Cardiac catheterization; Coronary stent placement; Appendectomy; and Hernia repair. Social History He reports that he has been smoking cigarettes. He has never used smokeless tobacco. He [...] BY MOUTH EVERY DAY, Disp: , Rfl: ezetimibe (Zetia) 10 mg tablet, Take 1 tablet (10 mg) by mouth in the morning., Disp: 90 tablet, Rfl: 3 isosorbide mononitrate ER (Imdur) 30 mg 24 hr tablet, Take 1 tablet (30 mg) by mouth in the morning. Do not crush or chew., Disp: 30 tablet, Rfl: 1 metoprolol tartrate (Lopressor) 50 mg tablet, Take 50 mg by mouth in the morning and at bedtime., Disp: , Rfl: nitroglycerin (Nitrostat) 0.4 mg SL tablet, nitroglycerin 0.4 mg sublingual tablet DISSOLVE 1 TAB UNDER TONGUE EVERY 5 MINUTES UP TO 3 TIMES NEEDED FOR CHEST PAIN, Disp: 90 tablet, Rfl: 1 omega-3 acid ethyl esters (Lovaza) 1 gram capsule, Take 2 capsules (2 g) by mouth in the morning and at bedtime., Disp: 360 capsule, Rfl: 3 Last Recorded Vitals BP 146/72 (BP Location: Left arm, Patient Position: Sitting) Pulse 73 Ht 1.778 m (5' 10 ) Wt 92.1 kg (203 lb) SpO2 97% BMI 29.13 kg/m??? Physical Examination: GENERAL: alert [...] medical management. 5. Follow up with Dr. Alvares in the next 2 to 4 weeks. [...] optimal medical therapy for coronary artery disease including dual antiplatelet therapy I emphasized the importance of statin therapy given his coronary artery disease and LDL well above target; Given his concerns regarding effects on liver function tests, and the absence of improvement on years of statins, I recommended initiating a PCSK9 inhibitor. We will start him on Repatha or Praluent which ever is covered by his insurance. Will repeat a lipid profile and LFTs in 3 months He has not had an echocardiogram in several years; will order a complete echocardiogram Return to clinic in 1 year or sooner should problems arise Prem Alvares MD, MPH, [facility], [facility], [facility] Interventional Cardiology Pager Email: [email or web address] ALLERGIES DATE TYPE / CODE NAME / CODE REACTION SEVERITY SOURCE SYSTEMIC/[id number]( SNOMED CT) NO KNOWN ALLERGIES [facility] ENCOUNTERS ADMIT/DISCHARGE ACCOUNT NUMBER ADMITTING ENCOUNTER CLASS LOCATION SOURCE 10/23/2024/ [id number] Ambulatory Building:[facility] PAYERS ENCOUNTER GUARANTOR PAYER SUBSCRIBER SOURCE 10/23/2024 Primary Insuranc e:[employer] VETERANS ADMINISTRATIONPolicy Number: [id number] Date:[id number] [address], [place] [address]ZU: BREN MARIEB: [id number] [place] [address] [facility] 10/23/2024 Secondary Insura nce:[employer] FEE BASISPolicy Number: [id number] Date:2021-01-19 BREN MARIEB: [id number] [place] [address] [facility] 10/23/2024 Tertiary Insuran ce:[facility] MEDICAIDPolicy Number: [id number] Date:2020-10-19 BREN MARIEB: [id number] [place] [address] [facility]
--- OUTSIDE RECORDS SUMMARY | 2025-02-11 07:14 | XMS_ITS | Clinical Summary ---
Author Organization [facility] Healthcare Address [address] [place] [address] Care Team Providers Care Content Checker Name Role Phone Unavailable Primary Care Provider Unavailabl e Social History Tobacco Use Types Packs/Day Years Used Date Smoking Tobacco: Never Assessed Sex and Gender Information Value Date Recorded Sex Assigned at Not on file Legal Sex Male 12:17 PM EDT Gender Identity Not on file Sexual Orientation Not on file Last Filed Vital Signs Vital Sign Reading Time Taken Comments Blood Pressure 120/70 01/13/2023 12:00 PM EDT Pulse - - Temperature - - Respiratory Rate - - Oxygen Saturation - - Inhaled Oxygen Concentration - - Weight 95.3 kg (210 lb) 01/13/2023 12:00 PM EDT Height - - Body Mass Index - - Plan of Treatment Not on file
--- OUTSIDE RECORDS SUMMARY | 2025-02-11 07:14 | XMS_ITS | Clinical Summary ---
Author Organization [facility] Address [facility] [id number] [address] [place] [address] Care Team Providers Care Rn Or Lvn Name Role Phone Hamilton Farmer MD Primary Care Provider [phone] Allergies No known active allergies Medications * This document contains information received from the source organization and may not represent a complete record from that organization. hydrOXYzine (VISTARIL) 25 mg capsule Take 1 capsule (25 mg total) by mouth 3 (three) times a day as needed for anxiety (or sleep). 30 capsule 08/27/2018 Active sildenafil citrate (VIAGRA ORAL) Take by mouth. Active Active Problems Problem Noted Date Diagnosed Date Major depressive disorder, recurrent episode, mo derate 08/27/2018 Generalized anxiety disorder 08/27/2018 Social History Tobacco Use Types Packs/Day Years Used Date Smoking Tobacco: Every Day Cigarettes Tobacco Cessation:Ready to Q uit: No; Counseling Given: No Alcohol Use Standard Drinks/Week Comments No 0 (1 standard drink = 0.6 oz pur e alcohol) 10 years abstinent AUDIT-C Answer Date Recorded Frequency of Alcohol Consumption Never 09/07/2018 Average Number of Drinks Not on file 018 Frequency of Binge Drinking Not on file 08/19 Childcare Answer Date Recorded Childcare Unknown 02/28/2019 Employment Answer Date Recorded Employment Unknown 02/28/2019 Purpose - Life Answer Date Recorded Purpose and direction in life Unknown Sex and Gender Information Value Date Recorded Sex Assigned at Male 09/07/2018 9:31 AM EST Legal Sex Male 2:16 PM EDT Gender Identity Male 09/07/2018 9:31 AM EST Sexual Orientation Straight 09/07/2018 9: 31 AM EST Plan of Treatment Health Maintenance Due Date Last Done Comments Depression Screening 1972 Tobacco Screening 1972 Adult BMI Screening 1978 DTaP,Tdap and Td Vaccines (1 - Tdap) 1979 Zoster (Shingles) Vaccine (1 of 2) 2010 Influenza Vaccine 2025 [employer] Devices Not on file Insurance Care Teams Rn Or Lvn Relationship Specialty Start Date End Date Hamilton Farmer MD PCP - General 07/31/18
--- OUTSIDE RECORDS SUMMARY | 2025-02-11 07:14 | XMS_ITS | Referral Summary ---
Author Organization [facility] Address [address] [place] [address] Care Team Providers Care Physician Assistant Primary Care Name Role Phone Unavailable Primary Care Provider Unavailabl e Allergies No known active allergies Medications Medication Sig Dispensed Refills Start Date End Date Status aspirin 81 mg EC tablet aspirin 81 mg tablet,delayed release TAKE 1 TABLET BY MOUTH EVERY DAY Active metoprolol tartrate (Lopressor) 50 mg tablet Take 50 mg by mouth in the morning and at bedtime. Active clopidogrel (Plavix) 75 mg tablet clopidogrel 75 mg tablet TAKE 1 TABLET BY MOUTH EVERY DAY Active atorvastatin (Lipitor) 80 mg tablet atorvastatin 80 mg tablet TAKE 1 TABLET BY MOUTH EVERY DAY Active cholecalciferol, vitamin D3, 10 mcg (400 unit) capsule Take by mouth. Ac tive isosorbide mononitrate ER (Imdur) 30 mg 24 hr tabletIndications:C oronary artery disease involving [place] coronary artery of [place] heart, unspecified whether angina present Take 1 tablet (30 mg) by mouth in the morning. Do not crush or chew. 30 tablet 1 12/27/2022 Active ezetimibe (Zetia) 10 mg tabletIndications:H yperlipidemia, unspecified hyperlipidemia type Take 1 tablet (10 mg) by mouth in the morning. 90 tablet 3 10/09/2023 Active Additional Information Patient not taking.Reported on 10/23/2024 omega-3 acid ethyl esters (Lovaza) 1 gram capsuleIndications: Hyperlipidemia, unspecified hyperlipidemia type Take 2 capsules (2 g) by mouth in the morning and at bedtime. 360 capsule 3 10/09/2023 Active Additional Information Patient not taking.Reported on 10/23/2024 nitroglycerin (Nitrostat) 0.4 mg SL tabletIndications:C hest pain, unspecified type nitroglycerin 0.4 mg sublingual tablet DISSOLVE 1 TAB UNDER TONGUE EVERY 5 MINUTES UP TO 3 TIMES NEEDED FOR CHEST PAIN 90 tablet 1 11/15/2023 Active evolocumab (Repatha SureClick) 140 mg/mL pen injectorIndications :Coronary artery disease involving [place] coronary artery of [place] heart without angina pectoris,Mixed hyperlipidemia Inject 140 mg under the skin every 14 (fourteen) days. 6 mL 3 10/23/2024 Active Active Problems Problem Noted Date Diagnosed Date Nicotine dependence, cigarettes, uncomplicated 0 10/23/2024 Unspecified lagophthalmos left upper eyelid 01/2025 Allergic rhinitis 10/09/2023 10/09/2023 Angina pectoris, unspecified 10/09/2023 Benign prostatic hyperplasia with urinary obstru ction 10/09/2023 10/09/2023 Carpal tunnel syndrome 10/09/2023 Depression 10/09/2023 10/09/2023 Dyslipidemia 10/09/2023 10/09/2023 Essential (primary) hypertension 10/09/2023 10/09/2023 Multiple nodules of lung 10/09/2023 024 Overview (10/09/2023): Aug 24, 2023 Entered By: ANTIONE ADAME Comment: 08/22/23 benign, repeat in 1 year Other chronic allergic conjunctivitis 10/09/2023 10/09/2023 Stented coronary artery 10/09/2023 10/09/19 24 Tinnitus 10/09/2023 10/09/2023 Vitamin D deficiency 10/09/2023 10/09/2023 Coronary atherosclerosis 12/23/2020 Smoker 11/13/2020 Generalized anxiety disorder 08/27/2018 Major depressive disorder, recurrent episode, mo derate 08/27/2018 Social History Tobacco Use Types Packs/Day Years Used Date Smoking Tobacco: Every Day Cigarettes Smokeless Tobacco: Never Tobacco Cessation:Ready to Q uit: Not Asked; Counseling Given: Not Answered Alcohol Use Standard Drinks/Week Comments Not Currently 0 (1 standard drink = 0.6 oz pur e alcohol) [place] Safety & Environment Answer Date Rec orded Fear of Current or Ex-Partner Not on file Emotionally Abused Not on file 11/09/2023 Physically Abused Not on file 11/09/2023 Sexually Abused Not on file 11/09/2023 Physically or Sexually Abused Not on file Sex and Gender Information Value Date Recorded Sex Assigned at Not on file Gender Identity Not on file Sexual Orientation Not on file Last Filed Vital Signs Vital Sign Reading Time Taken Comments Blood Pressure 146/72 10/23/2024 9:48 AM EST Pulse 73 10/23/2024 9:48 AM EST Temperature - - Respiratory Rate - - Oxygen Saturation 97% 10/23/2024 9:48 AM EST Inhaled Oxygen Concentration - - Weight 92.1 kg (203 lb) 10/23/2024 9:48 AM EST Height 177.8 cm (5' 10 ) 10/23/2024 9:48 AM EST Body Mass Index 29.13 10/23/2024 9:48 AM EST Plan of Treatment Not on file
--- OUTSIDE RECORDS SUMMARY | 2025-02-11 07:14 | XMS_ITS | Clinical Summary ---
Author Organization [facility] Address [address] [place] [address] Care Team Providers Care Orbitread Operator Name Role Phone Unavailable Primary Care Provider [...] 24 hr tabletIndications:C oronary artery disease involving [place] coronary artery of [place] heart, unspecified whether angina present Take 1 [...] mg/mL pen injectorIndications :Coronary artery disease involving [place] coronary artery of [place] heart without angina pectoris,Mixed hyperlipidemia Inject 140 [...] depressive disorder, recurrent episode, mo derate 08/27/2018 Family History Medical History Relation Name Comments Hypertension Mother Coronary artery disease Paternal Grandfather Relation Name Status Comments Mother Paternal Grandfather Social History Tobacco Use Types Packs/Day Years [...] 10/23/2024 9:48 AM EST Plan of Treatment Health Maintenance Due Date Last Done Comments CT Colonography 1960 Colonoscopy 1960 Colorectal Cancer Screening 1960 FIT-DNA 1960 FIT 1960 FOBT 1960 Medicare Initial Physical (IPPE) 1960 Sigmoidoscopy 1960 Pneumococcal Vaccine: Pediatrics (0 to 5 Years) and At-Risk Patients (6 to 64 Years) (1 of 2 - PCV) 1966 Depression Screening 1972 Adult Tetanus 1982 Zoster Vaccines (1 of 2) 2010 COVID-19 Vaccine (4 - 2023-2 5 season) 2024 09/13/2021, 01/05/2021, 11/26/2020 Influenza Vaccine (Season Ended) 2025 HIB Vaccines Aged Out No longer eligi ble based on patient's age to complete this topic HPV Vaccines Aged Out No longer eligi ble based on patient's age to complete this topic IPV Vaccines Aged Out No longer eligi ble based on patient's age to complete this topic Meningococcal B Vaccine Aged Out No l onger eligible based on patient's age to complete this topic Meningococcal Vaccine Aged Out No maye obdulio eligible based on patient's age to complete this topic Rotavirus Vaccines Aged Out No longer eligible based on patient's age to complete this topic
[2025-02-11 08:14] LABS: Alanine Aminotransferase 43 U/L (16-63); Albumin Globulin Ratio 1.2; Albumin Level 3.7 g/dL (3.4-5.0); Alkaline Phosphatase 90 U/L (46-116); Aspartate Amino Transferase 21 U/L (15-37); Bilirubin Direct 0.1 mg/dL (0.0-0.2); Bilirubin Total 0.4 mg/dL (0.2-1.0); Chol HDL Ratio 3.2; Cholesterol 97 mg/dL (<=200); HDL Cholesterol 30 mg/dL (40-60); Total Protein 6.7 g/dL (6.4-8.2); Triglycerides 319 mg/dL (<=150); VLDL CHOLESTEROL 63.8 mg/dL
== END 2025-02-11 07:13 | disposition home or self-care (01) ==
LOC: LAB 07:12
PROVIDERS: Visit Provider Internal Medicine Interventional Cardiology
DX: I25.10 Atherosclerotic heart disease of native coronary artery without angina pectoris (principal); E78.2 Mixed hyperlipidemia
CPT/HCPCS: 36415; 80061; 80076